=== PATIENT | female | born 1945 | race Caucasian/White ===

== ENCOUNTER 2017-05-17 17:51 | Emergency (ER) | payer MEDICARE, OTHER ==
[2017-05-17 18:01] VITALS: BP 141/63
[2017-05-17] MEDS ORDERED: Sodium Chloride 0.9% 10 ML Syringe FLUSH PRN ×2 (18:21→19:39)
[2017-05-17] MEDS ORDERED: Ondansetron 4 MG/2 ML SDV IVPUSH ONE (18:21)
[2017-05-17] MEDS ORDERED: Sodium Chloride 0.9% 1,000 ML IV SCH (18:30)
--- NOTE | 2017-05-17 18:31 | EDM.PDOC ---
<Janes Hayden - Last Filed: 05/17/17 18:25> ED HPI GENERAL MEDICAL PROBLEM - General Chief Complaint: Abdominal Pain Stated Complaint: LOWER ABD PAIN Time Seen by Provider: 05/17/17 18:14 Source of Information: Reports: Patient History Limitations: Reports: No Limitations - History of Present Illness INITIAL COMMENTS - FREE TEXT/NARRATIVE: The patient presents with RLQ abdominal pain. This started 3 days ago. It was intermittent at first and now it is constant. She has nausea and vomiting. She has a little diarrhea. She has no fever but she does have chills at times. She has no dysuria. She has no chest pain or shortness of breath. She had a hystorectomy. She thinks she still has her appendix. She has no eaten any bad food. She has not been around anyone who is sick. Onset: Gradual Duration: Day(s): (3) Location: Reports: Abdomen Quality: Reports: Sharp Severity: Moderate Improves with: Reports: None Worsens with: Reports: None Associated Symptoms: Reports: Fever/Chills, Nausea/Vomiting. Denies: Shortness of Breath Right Lower Abdomen Pain Score (Numeric/FACES): 7 - Related Data Allergies Allergy/AdvReac Type Severity Reaction Status Date / Time cefaclor [From Ceclor] Allergy Cannot Verified 05/17/17 18:01 Remember cephalexin monohydrate Allergy Cannot Verified 05/17/17 18:01 [From Keflex] Remember codeine Allergy Cannot Verified 05/17/17 18:01 Remember Penicillins Allergy Hives Verified 05/17/17 18:01 Home Meds: Home Meds Levothyroxine. 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: Endocrine/Metabolic History: Reports: Hypothyroidism - Past Surgical History HEENT Surgical History: Reports: Tonsillectomy Cardiovascular Surgical History: Reports: None Female Surgical History: Reports: Hysterectomy Social & Family History - Tobacco Use Smoking Status *Q: Current Every Day Smoker Years of Tobacco use: 50 Packs/Tins Daily: 0.3 Used Tobacco, but Quit: No Second Hand Smoke Exposure: No - Caffeine Use Caffeine Use: Reports: Coffee - Alcohol Use Days Per Week of Alcohol Use: 2 Number of Drinks Per Day: 6 Total Drinks Per Week: 12 - Recreational Drug Use Recreational Drug Use: No - Living Situation & Occupation Living situation: Reports: , with Spouse Occupation: Retired ED ROS GENERAL - Review of Systems Review Of Systems: See Below Constitutional: Reports: Chills. Denies: Fever HEENT: Reports: No Symptoms Respiratory: Reports: No Symptoms Cardiovascular: Reports: No Symptoms Endocrine: Reports: No Symptoms GI/Abdominal: Reports: Abdominal Pain, Diarrhea, Nausea, Vomiting : Reports: No Symptoms Musculoskeletal: Reports: No Symptoms Skin: Reports: No Symptoms ED EXAM, GI/ABD - Physical Exam Exam: See Below Exam Limited By: No Limitations General Appearance: Alert, No Apparent Distress Ears: Normal External Exam Nose: Normal Inspection Head: Atraumatic, Normocephalic Neck: Normal Inspection Respiratory/Chest: No Respiratory Distress, Lungs Clear, Normal Breath Sounds Cardiovascular: Regular Rate, Rhythm, No Edema, No Murmur GI/Abdominal: Soft, No Organomegaly, No Mass, Tenderness (Moderate to the RLQ), Guarding Back Exam: Normal Inspection Extremities: Normal Inspection Course - Vital Signs Last Recorded V/S: Last Vital Signs Temp 37.3 C 05/17/17 17:58 Pulse 67 05/17/17 17:58 Resp 18 05/17/17 17:58 BP 141/63 H 05/17/17 17:58 Pulse Ox 97 05/17/17 17:58 - Orders/Labs/Meds Orders: Active Orders 24 hr Category Date Time Status Peripheral IV Care [RC] . DIRECTED Care 05/17/17 18:24 Active Abdomen Pelvis w Cont [CT] Stat Exams 05/17/17 18:21 Taken CEA [REF] Stat Lab 05/17/17 18:30 Received Potassium Chloride [KCl 10 MEQ in Water 100 ML] 10 meq Med 05/17/17 19:30 Active Premix Bag 1 bag IV ASDIRECTED Sodium Chloride 0.9% [Normal Saline] 1,000 ml Med 05/17/17 18:30 Active IV ASDIRECTED Sodium Chloride 0.9% [Saline Flush] Med 05/17/17 18:21 Active 10 ml FLUSH ASDIRECTED PRN Sodium Chloride 0.9% [Saline Flush] Med 05/17/17 19:39 Active 10 ml FLUSH ONETIME PRN ED Antiemetic Medication Reflex [OM.PC] Stat Oth 05/17/17 18:23 Ordered Peripheral IV Insertion Adult [OM.PC] Stat Ot 05/17/17 18:21 Ordered Medication Orders Sodium Chloride (Normal Saline) 1,000 mls @ 125 mls/hr IV ASDIRECTED STACI Last Admin: 05/17/17 18:45 Dose: 125 mls/hr Potassium Chloride 10 meq/ (Premix) 100 mls @ 100 mls/hr IV ASDIRECTED STACI Last Admin: 05/17/17 20:12 Dose: 100 mls/hr Sodium Chloride (Saline Flush) 10 ml FLUSH ASDIRECTED PRN PRN Reason: Keep Vein Open Last Admin: 05/17/17 18:50 Dose: 10 ml Sodium Chloride (Saline Flush) 10 ml FLUSH ONETIME PRN PRN Reason: IV FLUSH Last Admin: 05/17/17 19:55 Dose: 10 ml Labs: Laboratory Tests 05/17/17 05/17/17 05/17/17 Range/Units 18:16 18:30 18:50 WBC 8.43 (3.98-10.04) K/mm3 RBC 3.93 L (3.98-5.22) M/mm3 Hgb 13.3 (11.2-15.7) gm/L Hct 37.9 (34.1-44.9) % MCV 96.4 H (79.4-94.8) fl MCH 33.8 H (25.6-32.2) pg MCHC 35.1 (32.2-35.5) g/dl RDW Std Deviation 40.6 (36.4-46.3) fL Plt Count 228 (182-369) K/mm3 MPV 11.0 (9.4-12.3) fl Neut % (Auto) 72.5 H (34.0-71.1) % Lymph % (Auto) 20.5 (19.3-51.7) % Hood % (Auto) 6.0 (4.7-12.5) % Eos % (Auto) 0.8 (0.7-5.8) Baso % (Auto) 0.1 (0.1-1.2) % Neut # (Auto) 6.10 (1.56-6.13) K/mm3 Lymph # (Auto) 1.73 (1.18-3.74) K/mm3 Hood # (Auto) 0.51 H (0.24-0.36) K/mm3 Eos # (Auto) 0.07 (0.04-0.36) K/mm3 Baso # (Auto) 0.01 (0.01-0.08) K/mm3 Sodium (136-145) mEq/L Potassium (3.5-5.1) mEq/L Chloride (98-107) mEq/L Carbon Dioxide (21-32) mEq/L Anion Gap (5-15) BUN (7-18) mg/dL Creatinine (0.55-1.02) mg/dL Est Cr Clr Drug Dosing Estimated GFR (MDRD) (>60) mL/min BUN/Creatinine Ratio (14-18) Glucose (83-115) mg/dL Calcium (8.5-10.1) mg/dL Total Bilirubin (0.2-1.0) mg/dL AST (15-37) U/L ALT (14-59) U/L Alkaline Phosphatase (46-116) U/L C-Reactive Protein (<1.0) mg/dL Total Protein (6.4-8.2) g/dl Albumin (3.4-5.0) g/dl Globulin gm/dL Albumin/Globulin Ratio (1-2) Lipase (73-393) U/L Urine Color Yellow (Yellow) Urine Appearance Clear (Clear) Urine pH 6.5 (5.0-8.0) Ur Specific [place] 1.015 (1.005-1.030) Urine Protein Negative (Negative) Urine Glucose (UA) Negative (Negative) Urine Ketones Negative (Negative) Urine Occult Blood Negative (Negative) Urine Nitrite Negative (Negative) Urine Bilirubin Negative (Negative) Urine Urobilinogen 0.2 (0.2-1.0) Ur Leukocyte Esterase Negative (Negative) Urine RBC Not seen (0-5) /hpf Urine WBC 0-5 (0-5) /hpf Ur Epithelial Cells 0-5 (0-5) /hpf Urine Bacteria Not seen (FEW) /hpf Urine Mucus Not seen (FEW) /hpf H. pylori IgG Antibody Negative (NEGATIVE) 05/17/17 05/17/17 Range/Units 18:50 18:50 WBC (3.98-10.04) K/mm3 RBC (3.98-5.22) M/mm3 Hgb (11.2-15.7) gm/L Hct (34.1-44.9) % MCV (79.4-94.8) fl MCH (25.6-32.2) pg MCHC (32.2-35.5) g/dl RDW Std Deviation (36.4-46.3) fL Plt Count (182-369) K/mm3 MPV (9.4-12.3) fl Neut % (Auto) (34.0-71.1) % Lymph % (Auto) (19.3-51.7) % Hood % (Auto) (4.7-12.5) % Eos % (Auto) (0.7-5.8) Baso % (Auto) (0.1-1.2) % Neut # (Auto) (1.56-6.13) K/mm3 Lymph # (Auto) (1.18-3.74) K/mm3 Hood # (Auto) (0.24-0.36) K/mm3 Eos # (Auto) (0.04-0.36) K/mm3 Baso # (Auto) (0.01-0.08) K/mm3 Sodium 135 L (136-145) mEq/L Potassium 3.1 L (3.5-5.1) mEq/L Chloride 97 L (98-107) mEq/L Carbon Dioxide 27 (21-32) mEq/L Anion Gap 14.1 (5-15) BUN 11 (7-18) mg/dL Creatinine 0.9 (0.55-1.02) mg/dL Est Cr Clr Drug Dosing TNP Estimated GFR (MDRD) > 60 (>60) mL/min BUN/Creatinine Ratio 12.2 L (14-18) Glucose 87 (83-115) mg/dL Calcium 8.9 (8.5-10.1) mg/dL Total Bilirubin 0.4 (0.2-1.0) mg/dL AST 22 (15-37) U/L ALT 27 (14-59) U/L Alkaline Phosphatase 55 (46-116) U/L C-Reactive Protein < 0.2 (<1.0) mg/dL Total Protein 7.1 (6.4-8.2) g/dl Albumin 3.9 (3.4-5.0) g/dl Globulin 3.2 gm/dL Albumin/Globulin Ratio 1.2 (1-2) Lipase 170 (73-393) U/L Urine Color (Yellow) Urine Appearance (Clear) Urine pH (5.0-8.0) Ur Specific [place] (1.005-1.030) Urine Protein (Negative) Urine Glucose (UA) (Negative) Urine Ketones (Negative) Urine Occult Blood (Negative) Urine Nitrite (Negative) Urine Bilirubin (Negative) Urine Urobilinogen (0.2-1.0) Ur Leukocyte Esterase (Negative) Urine RBC (0-5) /hpf Urine WBC (0-5) /hpf Ur Epithelial Cells (0-5) /hpf Urine Bacteria (FEW) /hpf Urine Mucus (FEW) /hpf H. pylori IgG Antibody (NEGATIVE) Meds: Medications Generic Name Dose Route Start Last Admin Trade Name Freq PRN Reason Stop Dose Admin Sodium Chloride 1,000 mls @ 125 mls/hr 05/17/17 18:30 05/17/17 18:45 Normal Saline IV 125 mls/hr ASDIRECTED STACI Administration Potassium Chloride 10 meq/ 100 mls @ 100 mls/hr 05/17/17 19:30 05/17/17 20:12 Premix IV 100 mls/hr ASDIRECTED STACI Administration Sodium Chloride 10 ml 05/17/17 18:21 05/17/17 18:50 Saline Flush FLUSH 10 ml ASDIRECTED PRN Administration Keep Vein Open Sodium Chloride 10 ml 05/17/17 19:39 05/17/17 19:55 Saline Flush FLUSH 10 ml ONETIME PRN Administration IV FLUSH Discontinued Medications Generic Name Dose Route Start Last Admin Trade Name Freq PRN Reason Stop Dose Admin Diatrizoate Meglum/Diatrizoate Sod 90 ml 05/17/17 19:39 05/17/17 19:55 Gastrografin 37% PO 05/17/17 19:40 90 ml ONETIME ONE Administration Iopamidol 100 ml 05/17/17 19:39 05/17/17 19:55 Isovue-300 (61%) IVPUSH 05/17/17 19:40 100 ml ONETIME ONE Administration Ondansetron HCl 4 mg 05/17/17 18:21 05/17/17 18:42 Zofran IVPUSH 05/17/17 18:22 4 mg ONETIME ONE Administration - Re-Assessments/Exams Free Text/Narrative Re-Assessment/Exam: 05/17/17 18:33 I ordered an IV NS at 125mL/hr, zofran 4mg IV, labs, UA and a CT of her abdomen and pelvis. It is the end of my shift. Dr Maloney will take over. Departure - Departure Disposition: Home, Self-Care 01 Clinical Impression: Rectal mass, Hypokalemia Abdominal pain Qualifiers: Abdominal location: right lower quadrant Qualified Code(s): R10.31 - Right lower quadrant pain Diarrhea Qualifiers: Diarrhea type: unspecified type Qualified Code(s): R19.7 - Diarrhea, unspecified - Discharge Information Referrals: Martin Agustin MD [Primary Care Provider] - Forms: ED Department Discharge Additional Instructions: Evaluation in the emergency room today in regards to right lower quadrant abdominal pain that is working been worsening over the last 3 days. Lab work done essentially was all within normal limits other than low potassium at 3.1 which is mostly from not eating as well as normal. He did receive some potassium intravenously while here in the department to bring it back up towards normal. CT of the abdomen did not reveal any abnormality is within the liver or pancreas spleen and gallbladder or kidneys. The appendix was not visualized. There is a mass in the rectum however and this needs further investigation to rule out cancer. Please arrange follow-up with Dr. Valadez next week so that he can direct further care by way of surgical consultation and biopsy of this mass. May take pain medication if needed which you have at home. Continue to eat and drink as per normal. - My Orders Last 24 Hours: My Active Orders 05/17/17 18:30 CEA [REF] Stat 05/17/17 19:30 Potassium Chloride [KCl 10 MEQ in Water 100 ML] 10 meq Premix Bag 1 bag IV ASDIRECTED 05/17/17 19:39 Sodium Chloride 0.9% [Saline Flush] 10 ml FLUSH ONETIME PRN - Assessment/Plan Last 24 Hours: My Active Orders 05/17/17 18:30 CEA [REF] Stat 05/17/17 19:30 Potassium Chloride [KCl 10 MEQ in Water 100 ML] 10 meq Premix Bag 1 bag IV ASDIRECTED 05/17/17 19:39 Sodium Chloride 0.9% [Saline Flush] 10 ml FLUSH ONETIME PRN <Miguel Maloney - Last Filed: 05/17/17 21:24> Course - Radiology Interpretation Free Text/Narrative:: 72-year-old female presents the ED with diffuse right lower quadrant abdominal pain gradually worsening over the last 3 days. Associated nausea and intermittent vomiting and one diarrhea stool today. No associated fever but did have some chills. Dr. Khan and has ordered routine labs blood cultures urinalysis lipase and CT of the abdomen and pelvis with oral and IV contrast. She has received Zofran 4 mg IV. She refused anything for pain at this time. - Re-Assessments/Exams Free Text/Narrative Re-Assessment/Exam: 05/17/17 18:[address] Hayden at change of shift. Urinalysis is normal. RLQ abdominal pain x 3 days. Associated anorexia. Ate only an Portuguese muffin today so far. 05/17/17 19:29 WBC is 8.43 with 72.5% neutrophils reported on automated differential. Hemoglobin is 13.3 hematocrit is 37.9 platelet is 228,000. Sodium 135 potassium low at 3.1. Chloride is 94 bicarbonate 27. Anion gap 14.1 lipase normal at 170. CRP is pending. On examination she is quite bloated and distended and somewhat tympanitic to percussion throughout. Bowel sounds are quite active in all 4 quadrants. No guarding or rebound tenderness elicited. Pain for the most part is felt in the right lower quadrant but also radiates up into her left shoulder at times. She's had loose stools or diarrhea stools 3 or 4 times in the last 36 hours. She has just finished her oral contrast. CT is scheduled for 19:45. She does admit that her toes are cramping up at times may be secondary to the hypoechoic anemia. I will give her 10 mg of potassium IV over the next half hour. 05/17/17 20:13 CT of the abdomen and pelvis has been completed. Stomach is well filled with contrast media small bowels all filled with contrast media as is most of us large bowel. There is no obvious increased stool within the colon. Minimal diverticula evident with no evidence of active diverticulitis.. Liver itself appears normal. Gallbladder appears normal without stones. Pancreas appears normal spleen is normal. Kidneys are both atrophic left right renal pelvis is slightly dilated as is the proximal ureter but no stone or obstruction could be identified in the distal ureter. Appendix is not seen. No fluid in the lower pelvis identified. No abdominal wall or inguinal hernias appreciated. There is a mass in the lower rectum involving the wall of the colon approximately 8-10 cm proximal colon it takes up almost 50% of the diameter of the colon. This is very concerning for malignancy. Is attached to the right wall of the rectum. This may be the cause of her right lower quadrant abdominal pain. Will await Radiology report 05/17/17 20:59 radiology agrees with the above findings. They also suggested may be some thickening in the duodenum to suggest gastroduodenitis. I therefore ordered H. pylori. I also ordered a CEA antigen due to the possibility of rectal carcinoma. Spoke to the patient about the findings. Once her potassium has been infused he'll be discharged to home. She'll follow-up with her personal physician Dr. Valadez next week to arrange for a surgeon to do a colonoscopy and biopsy this. Dr. Pride is currently on vacation. He may be back next week. She has had previous colonoscopies when Dr. Murillo was still working. It may be as long as 8 years since she has had a colonoscopy. Departure - Departure Time of Disposition: 21:30 Condition: Fair - My Orders Last 24 Hours: My Active Orders 05/17/17 18:30 CEA [REF] Stat 05/17/17 19:30 Potassium Chloride [KCl 10 MEQ in Water 100 ML] 10 meq Premix Bag 1 bag IV ASDIRECTED 05/17/17 19:39 Sodium Chloride 0.9% [Saline Flush] 10 ml FLUSH ONETIME PRN - Assessment/Plan Last 24 Hours: My Active Orders 05/17/17 18:30 CEA [REF] Stat 05/17/17 19:30 Potassium Chloride [KCl 10 MEQ in Water 100 ML] 10 meq Premix Bag 1 bag IV ASDIRECTED 05/17/17 19:39 Sodium Chloride 0.9% [Saline Flush] 10 ml FLUSH ONETIME PRN
[2017-05-17] MEDS ORDERED: Potassium Chloride 10 MEQ in Premix Bag 1 BAG IV SCH (19:30)
[2017-05-17] MEDS ORDERED: Diatrizoate Meglumine/Diatrizoate Sodium 37% 120 ML Bottle PO ONE (19:39)
[2017-05-17] MEDS ORDERED: Iopamidol 612 MG/ML 100 ML Bottle IVPUSH ONE (19:39)
--- NOTE | 2017-05-19 15:26 | CT ---
CT abdomen and pelvis Technique: Multiple axial sections were obtained from above the dome of the diaphragm inferiorly through the pubic symphysis. Intravenous and oral contrast was utilized. Comparison: Previous CT abdomen and pelvis exam of 04/25/15. Findings: Visualized lung bases are clear. Small hiatal hernia is seen. Liver shows no focal parenchymal abnormality. Spleen appears within normal limits. Soft tissue nodule is noted medial to the spleen compatible with accessory splenic tissue. Low-density lesion is noted within the left kidney compatible with a cyst measuring 1.9 cm in size. Kidneys otherwise are normal in appearance. Pancreas appears within normal limits. Adrenal glands show no nodule. Gallbladder shows no calcified gallstones. Atherosclerotic change is noted within the aorta and iliac vessels without aneurysm. No retroperitoneal adenopathy is seen. Appendix is not visualized. No pelvic mass or adenopathy is seen. Soft tissue finding is seen within the rectum possibly due to stool but recommend further evaluation to exclude rectal mass. Mild diverticulosis is noted within the descending and sigmoid regions. Soft tissue fullness is seen within the stomach antrum most likely due to normal stomach contraction if patient has no symptoms of gastritis. Bone window settings were reviewed which show degenerative change within the spine with vacuum phenomena being seen at L3-L4 through L5-S1. Mild spondylolisthesis noted at L3-L4 due to degenerative apophyseal change. Impression: 1. Soft tissue density within the rectum either due to stool or less likely mass. Please correlate with endoscopy. 2. Finding within the stomach antrum likely due to normal peristalsis. Please correlate that patient has no symptoms of gastritis. 3. Other incidental findings. Nothing acute is identified. Diagnostic code #3 I agree with preliminary report issued by [employer] ([facility] report finalized on 05/17/17, 9:38 PM Central Time)
== END 2017-05-17 21:30 | disposition home or self-care (01) ==
LOC: JD.ED 17:51
DX: R10.31 Right lower quadrant pain (principal); R19.7 Diarrhea, unspecified; K62.89 Other specified diseases of anus and rectum; E87.6 Hypokalemia; I10 Essential (primary) hypertension; E78.00 Pure hypercholesterolemia, unspecified; F17.210 Nicotine dependence, cigarettes, uncomplicated; E03.9 Hypothyroidism, unspecified; Z90.710 Acquired absence of both cervix and uterus; Z98.890 Other specified postprocedural states; Z79.899 Other long term (current) drug therapy; Z88.0 Allergy status to penicillin; Z88.5 Allergy status to narcotic agent; Z88.1 Allergy status to other antibiotic agents
CPT/HCPCS: 36415; 74177; 80053; 81001; 82378; 83690; 85025; 86140; 86677; 96361; 96365; 96375; 99284; J2405; J3480; J7040; J7050; Q9963; Q9967

== ENCOUNTER 2018-03-18 18:50 | Emergency (ER) | payer MEDICARE, OTHER ==
--- NOTE | 2018-03-18 19:02 | EDM.PDOC ---
ED HPI GENERAL MEDICAL PROBLEM - General Chief Complaint: Abdominal Pain Stated Complaint: ABDOMINAL PAIN THAT GOES DOWN INTO BOTH LEGS Time Seen by Provider: 03/18/18 19:02 Source of Information: Reports: Patient History Limitations: Reports: No Limitations - History of Present Illness INITIAL COMMENTS - FREE TEXT/NARRATIVE: 73-year-old female presents to the ED complaining of diffuse constant abdominal pain. Pain awoke her from sleep yesterday morning and seemed to be off and on throughout the day. Today it's become much more constant and associated with nausea. She spitting up small amounts of mucus is clear. No bilious emesis. Bowels did work normally once today without blood. She's had one previous surgery which was a total abdominal hysterectomy and BSO. This was done at age 26. Pain does not radiate into her back. She states the pain seems to radiate down the anterior aspect of both legs she knows she has [id number] in her right hip and is to have it replaced. Last meal was a bit of a solid at noon today. Nothing since Onset: Sudden Onset Date: 03/17/18 (Awoke with some diffuse amount discomfort yesterday but it seemed to come and go. Worse since waking up this morning and is been persistent. No strep throat real colicky component to the pain.) Duration: Hour(s): Location: Reports: Abdomen Quality: Reports: Ache, Sharp, Stabbing Severity: Moderate (To the lower extremities) Improves with: Reports: None Worsens with: Reports: Movement Context: Denies: Activity (Walking seems to make it worse), Exercise, Lifting, Sick Contact, Trauma, Other Associated Symptoms: Reports: Loss of Appetite. Denies: No Other Symptoms, Confusion, Chest Pain, Cough, cough w sputum, Diaphoresis, Fever/Chills, Headaches, Malaise, Nausea/Vomiting, Rash, Seizure, Shortness of Breath, Syncope , Weakness Treatments SURGICAL TECH: Reports: Other (see below) (None.) Upper Abdomen Pain Score (Numeric/FACES): 7 - Related Data Allergies Allergy/AdvReac Type Severity Reaction Status Date / Time cefaclor [From Ceclor] Allergy Cannot Verified 03/18/18 19:05 Remember cephalexin monohydrate Allergy Cannot Verified 03/18/18 19:05 [From Keflex] Remember codeine Allergy Cannot Verified 03/18/18 19:05 Remember Penicillins Allergy Hives Verified 03/18/18 19:05 Home Meds: Home Meds Levothyroxine. 75 mcg PO DAILY 05/18/14 [History] Losartan [Cozaar] 50 mg PO DAILY 06/26/16 [History] Calcium Carbonate/Vitamin D3 [Calcium 600 + Vit D Tablet] 1 each PO DAILY [History] Cholecalciferol (Vitamin D3) [Vitamin D] 5,000 unit PO ASDIRECTED 05/17/17 [ History] Fish Oil/Swengel-3 Fatty Acids [Fish Oil] 1 gm PO DAILY 05/17/17 [History] Levofloxacin [Levaquin] 500 mg PO DAILY #5 tab 03/18/18 [Rx] Past Medical History HEENT History: Reports: Impaired Vision, Sinusitis Other HEENT History: WEARS CORRECTIVE LENSES Cardiovascular History: Reports: High Cholesterol, Hypertension [employer] History: Reports: Endocrine/Metabolic History: Reports: Hypothyroidism - Past Surgical History HEENT Surgical History: Reports: Tonsillectomy Cardiovascular Surgical History: Reports: None Female Surgical History: Reports: Hysterectomy Social & Family History - Caffeine Use Caffeine Use: Reports: Coffee - Living Situation & Occupation Living situation: Reports: , with Spouse Occupation: Retired ED ROS GENERAL - Review of Systems Review Of Systems: See Below Constitutional: Reports: Decreased Appetite. Denies: Fever, Chills, Malaise, Weakness, Fatigue, Weight Loss HEENT: Reports: No Symptoms Respiratory: Reports: No Symptoms Cardiovascular: Reports: No Symptoms Endocrine: Reports: No Symptoms GI/Abdominal: Reports: Abdominal Pain, Decreased Appetite, Distension (Feels distended and bloated.), Nausea. Denies: Hematemesis, Melena, Stool Incontinence, Vomiting, Other Musculoskeletal: Reports: No Symptoms, Other (Has pain in her right hip bone-on- bone and is due to have it fixed.). Denies: Back Pain Skin: Reports: No Symptoms Neurological: Reports: No Symptoms Psychiatric: Reports: No Symptoms Hematologic/Lymphatic: Reports: No Symptoms Immunologic: Reports: No Symptoms ED EXAM, GI/ABD - Physical Exam Exam: See Below Exam Limited By: No Limitations General Appearance: Alert, WD/WN, No Apparent Distress Eyes: Bilateral: Normal Appearance (No jaundice.) Throat/Mouth: Normal Inspection, Normal Lips Head: Atraumatic, Normocephalic Neck: Normal Inspection, Supple, Non-Tender, Full Range of Motion. No: Carotid Bruit, Lymphadenopathy (L), Lymphadenopathy (R) Respiratory/Chest: No Respiratory Distress, Lungs Clear, Normal Breath Sounds, No Accessory Muscle Use Cardiovascular: Normal Peripheral Pulses, Regular Rate, Rhythm, No Edema, No Murmur GI/Abdominal Exam: Soft, Non-Tender, No Organomegaly (Hyperactive bowel sounds in all 4 quadrants. She reports she's been drinking a large quantity of water today.), No Abnormal Bruit, No Mass, Pelvis Stable, Distended, Abnormal Bowel Sounds, Other (Well-healed infraumbilical classical incision from umbilicus just suprapubic is from total abdominal hysterectomy.). No: Guarding, Rigid, Rebound, Tender Back Exam: Normal Inspection, Full Range of Motion. No: CVA Tenderness (L), CVA Tenderness (R) Extremities: Normal Inspection, Normal Range of Motion, Non-Tender, No Pedal Edema, Other (She can lift both legs off the gurney well above 60 without any signs of sciatica or referred pain down her legs.) Neurological: Alert, Oriented, CN II-XII Intact, Normal Cognition, Normal Gait Psychiatric: Normal Affect, Normal Mood Skin Exam: Warm, Dry, Intact, Normal Color, No Rash Course - Vital Signs Last Recorded V/S: Last Vital Signs Temp 36.6 C 03/18/18 18:56 Pulse 70 03/18/18 18:56 Resp 18 03/18/18 18:56 BP 151/69 H 03/18/18 18:56 Pulse Ox 99 03/18/18 18:56 - Orders/Labs/Meds Orders: Active Orders 24 hr Category Date Time Status Abdomen 1V Flat [CR] Stat Exams 03/18/18 19:14 Taken CULTURE URINE [RM] Stat Lab 03/18/18 20:43 Ordered URINALYSIS W/MICROSCOPIC [UA W/MICROSCOPIC] [URIN] Stat Lab 03/18/18 19:00 Ordered Sodium Chloride 0.9% [Normal Saline] 1,000 ml Med 03/18/18 19:15 Active IV ASDIRECTED Medication Orders Sodium Chloride (Normal Saline) 1,000 mls @ 125 mls/hr IV ASDIRECTED STACI Last Admin: 03/18/18 19:27 Dose: 125 mls/hr Labs: Laboratory Tests 03/18/18 03/18/18 03/18/18 Range/Units 19:00 19:20 19:20 WBC 8.31 (3.98-10.04) K/mm3 RBC 3.88 L (3.98-5.22) M/mm3 Hgb 12.9 (11.2-15.7) gm/L Hct 38.0 (34.1-44.9) % MCV 97.9 H (79.4-94.8) fl MCH 33.2 H (25.6-32.2) pg MCHC 33.9 (32.2-35.5) g/dl RDW Std Deviation 40.9 (36.4-46.3) fL Plt Count 243 (182-369) K/mm3 MPV 11.4 (9.4-12.3) fl Neutrophils % (Manual) 70 H (40-60) % Band Neutrophils % 1 (0-10) % Lymphocytes % (Manual) 24 (20-40) % Atypical Lymphs % 0 % Monocytes % (Manual) 3 (2-10) % Eosinophils % (Manual) 1 (0.7-5.8) % Basophils % (Manual) 1 (0.1-1.2) Platelet Estimate Adequate RBC Morph Comment Normal D-Dimer, Quantitative 0.41 (0.19-0.50) mg/L Sodium (136-145) mEq/L Potassium (3.5-5.1) mEq/L Chloride (98-107) mEq/L Carbon Dioxide (21-32) mEq/L Anion Gap (5-15) BUN (7-18) mg/dL Creatinine (0.55-1.02) mg/dL Est Cr Clr Drug Dosing mL/min Estimated GFR (MDRD) (>60) mL/min BUN/Creatinine Ratio (14-18) Glucose (83-115) mg/dL Calcium (8.5-10.1) mg/dL Magnesium (1.8-2.4) mg/dl Total Bilirubin (0.2-1.0) mg/dL AST (15-37) U/L ALT (14-59) U/L Alkaline Phosphatase (46-116) U/L C-Reactive Protein (<1.0) mg/dL Total Protein (6.4-8.2) g/dl Albumin (3.4-5.0) g/dl Globulin gm/dL Albumin/Globulin Ratio (1-2) Lipase (73-393) U/L Urine Color Light yellow (Yellow) Urine Appearance Clear (Clear) Urine pH 7.0 (5.0-8.0) Ur Specific Busby 1.015 (1.005-1.030) Urine Protein Negative (Negative) Urine Glucose (UA) Negative (Negative) Urine Ketones Negative (Negative) Urine Occult Blood Negative (Negative) Urine Nitrite Negative (Negative) Urine Bilirubin Negative (Negative) Urine Urobilinogen 0.2 (0.2-1.0) Ur Leukocyte Esterase 2+ H (Negative) Urine RBC 0-5 (0-5) /hpf Urine WBC 5-10 H (0-5) /hpf Ur Epithelial Cells 0-5 (0-5) /hpf Urine Bacteria Few (FEW) /hpf Urine Mucus Not seen (FEW) /hpf 03/18/18 03/18/18 Range/Units 19:20 19:20 WBC (3.98-10.04) K/mm3 RBC (3.98-5.22) M/mm3 Hgb (11.2-15.7) gm/L Hct (34.1-44.9) % MCV (79.4-94.8) fl MCH (25.6-32.2) pg MCHC (32.2-35.5) g/dl RDW Std Deviation (36.4-46.3) fL Plt Count (182-369) K/mm3 MPV (9.4-12.3) fl Neutrophils % (Manual) (40-60) % Band Neutrophils % (0-10) % Lymphocytes % (Manual) (20-40) % Atypical Lymphs % % Monocytes % (Manual) (2-10) % Eosinophils % (Manual) (0.7-5.8) % Basophils % (Manual) (0.1-1.2) Platelet Estimate RBC Morph Comment D-Dimer, Quantitative (0.19-0.50) mg/L Sodium 139 (136-145) mEq/L Potassium 3.3 L (3.5-5.1) mEq/L Chloride 101 (98-107) mEq/L Carbon Dioxide 25 (21-32) mEq/L Anion Gap 16.3 H (5-15) BUN 13 (7-18) mg/dL Creatinine 0.8 (0.55-1.02) mg/dL Est Cr Clr Drug Dosing 48.80 mL/min Estimated GFR (MDRD) > 60 (>60) mL/min BUN/Creatinine Ratio 16.3 (14-18) Glucose 99 (83-115) mg/dL Calcium 9.1 (8.5-10.1) mg/dL Magnesium 1.7 L (1.8-2.4) mg/dl Total Bilirubin 0.4 (0.2-1.0) mg/dL AST 30 (15-37) U/L ALT 36 (14-59) U/L Alkaline Phosphatase 47 (46-116) U/L C-Reactive Protein < 0.2 (<1.0) mg/dL Total Protein 7.3 (6.4-8.2) g/dl Albumin 4.0 (3.4-5.0) g/dl Globulin 3.3 gm/dL Albumin/Globulin Ratio 1.2 (1-2) Lipase 150 (73-393) U/L Urine Color (Yellow) Urine Appearance (Clear) Urine pH (5.0-8.0) Ur Specific Busby (1.005-1.030) Urine Protein (Negative) Urine Glucose (UA) (Negative) Urine Ketones (Negative) Urine Occult Blood (Negative) Urine Nitrite (Negative) Urine Bilirubin (Negative) Urine Urobilinogen (0.2-1.0) Ur Leukocyte Esterase (Negative) Urine RBC (0-5) /hpf Urine WBC (0-5) /hpf Ur Epithelial Cells (0-5) /hpf Urine Bacteria (FEW) /hpf Urine Mucus (FEW) /hpf Meds: Medications Generic Name Dose Route Start Last Admin Trade Name Freq PRN Reason Stop Dose Admin Sodium Chloride 1,000 mls @ 125 mls/hr 03/18/18 19:15 03/18/18 19:27 Normal Saline IV 125 mls/hr ASDIRECTED STACI Administration Discontinued Medications Generic Name Dose Route Start Last Admin Trade Name Freq PRN Reason Stop Dose Admin Hydromorphone HCl 0.5 mg 03/18/18 19:33 03/18/18 19:43 Dilaudid IVPUSH 03/18/18 19:34 Not Given ONETIME ONE Ondansetron HCl 4 mg/ Sodium 52 mls @ 100 mls/hr 03/18/18 19:13 Chloride IV 03/18/18 19:45 ONETIME ONE Ondansetron HCl 4 mg 03/18/18 19:23 Zofran IVPUSH 03/18/18 19:24 ONETIME ONE Ondansetron HCl 4 mg 03/18/18 19:32 03/18/18 19:41 Zofran IVPUSH 03/18/18 19:33 4 mg ONETIME ONE Administration - Radiology Interpretation Free Text/Narrative:: 73-year-old female presents the ED with complaint of diffuse abdominal pain primarily epigastrium pain is occasionally sharp and stabbing is referred into the pelvis and down both legs anteriorly and posteriorly. She has [id number] in her right hip with loss of internal/external rotation. She can lift both legs off the gurney without problems. She has 2+ posterior tibial and dorsalis pedis pulses in both lower extremities. No femoral bruits identified. No aortic abdominal bruit identified. Plan IV normal saline 125 mils per hour given Zofran 4 mg IV for nausea relief. Dilaudid 0.5 mg IV for pain relief. One view of the abdomen to be done in routine labs to be done. She drinks alcohol rarely. She has no peritoneal signs but she is diffusely Tympany to percussion and slightly distended. Hyperactive bowel sounds also appreciated. The unusual thing is the referred pain into the lower extremities. Consider aortic dissection in the differential. - Re-Assessments/Exams Free Text/Narrative Re-Assessment/Exam: 03/18/18 19:44 examination of the KUB reveals increased stool throughout the colon particularly the hepatic flexure of the colon distended with air. No bowel obstruction signs are evident. Diffuse degenerative changes are appreciated throughout the lumbar spine as well. 03/18/18 20:42 White count is 8.31 with 70% neutrophils and 1% bands reported. Hemoglobin is 12.9 with hematocrit of 38.0. D-dimer is normal at 0.41. Sodium is 139 with a potassium of 3.3 which is slightly low. Chloride 101 with a bicarbonate 25. Anion gap is mildly elevated at 16.3. BUN is 13 with a creatinine of 0.8. GFR is greater than 60. Glucose is 99. Calcium 9.1 with a magnesium of 1.7. Liver function is normal. C-reactive protein is less than 0.2. Lipase 150. Urinalysis shows 2+ leukocyte esterase with 5-10 WBCs per high- power field.. Few bacteria seen. Urine culture will be ordered. 03/18/18 20:48 therefore appears that she may have a low-grade urinary tract infection although she states she hasn't had one for years. She has urinary frequency because she drinks excessive amounts of water throughout the day. I think the majority of her down the pain is secondary to constipation the right hemicolon. She'll be given a bottle of Citroma to take at home 7 ounces tonight mixed with water that she does not drink juices. She will also be started on Levaquin 500 mg once daily for urinary tract infection for 6 days. First tablet will provide provided in the ED tonight. Departure - Departure Time of Disposition: 20:49 Disposition: Home, Self-Care 01 Condition: Fair Clinical Impression: Constipation by delayed colonic transit, Lower urinary tract infection Abdominal pain Qualifiers: Abdominal location: right lower quadrant Qualified Code(s): R10.31 - Right lower quadrant pain - Discharge Information Prescriptions: Levofloxacin [Levaquin] 500 mg PO DAILY #5 tab Referrals: Martin Agustin MD [Primary Care Provider] - Forms: ED Department Discharge Additional Instructions: evaluation the emergency room today in regards to diffuse abdominal pain since he got up this morning. Associated bloating feeling. Examination revealedno obvious serious underlying pathology of the abdomen. Bowel sounds were hyperactive and abdomen is distended with air. Tray was done and did not show any signs of bowel obstruction. He does show increased stool throughout the right hemicolon and other parts of the colon but mostly the plug in the right hemicolon is causing gas buildup and pain.Lab work was otherwise normal. Urinalysis however did suggest that there is a low-grade urinary tract infection and culture was ordered. Treatment is therefore magnesium citrate 7 ounces by mouth mixed with whatever juice or water you like. This will start work in 1-2 hours and her bowels move usually for 5 times and should relieve your abdominal pain completely. Antibiotic Levaquin 500 milligrams once daily with first dose given in the ED. Next dose would be due at suppertime tomorrow and for another 5 days. Follow-up if not markedly improved in the next 48 hours particularly if you're lower extremity or legs continue to hurt you. - My Orders Last 24 Hours: My Active Orders 03/18/18 19:00 URINALYSIS W/MICROSCOPIC [UA W/MICROSCOPIC] [URIN] Stat 03/18/18 19:14 Abdomen 1V Flat [CR] Stat 03/18/18 19:15 Sodium Chloride 0.9% [Normal Saline] 1,000 ml IV ASDIRECTED 03/18/18 20:43 CULTURE URINE [RM] Stat - Assessment/Plan Last 24 Hours: My Active Orders 03/18/18 19:00 URINALYSIS W/MICROSCOPIC [UA W/MICROSCOPIC] [URIN] Stat 03/18/18 19:14 Abdomen 1V Flat [CR] Stat 03/18/18 19:15 Sodium Chloride 0.9% [Normal Saline] 1,000 ml IV ASDIRECTED 03/18/18 20:43 CULTURE URINE [RM] Stat
[2018-03-18 19:05] VITALS: BP 151/69
[2018-03-18] MEDS ORDERED: Ondansetron 4 MG in Sodium Chloride 0.9% 50 ML IV ONE (19:13)
[2018-03-18] MEDS ORDERED: Sodium Chloride 0.9% 1,000 ML IV SCH (19:15)
[2018-03-18] MEDS ORDERED: Ondansetron 4 MG/2 ML SDV IVPUSH ONE ×2 (19:23→19:32)
[2018-03-18] MEDS ORDERED: HYDROmorphone 0.5 MG/0.5 ML SYRINGE IVPUSH ONE (19:33)
[2018-03-18] MEDS ORDERED: Levofloxacin 250 MG Tab PO ONE (20:48)
[2018-03-18] MEDS ORDERED: Magnesium Citrate Solution 296 ML Bottle PO ONE (20:49)
--- NOTE | 2018-03-19 07:55 | CR ---
Abdomen: Supine view of the abdomen was obtained. Comparison: Prior abdominal x-ray of 01/07/16. Bowel gas pattern appears normal. Bony structures are osteopenic. Calcifications are seen within the pelvis compatible with phleboliths. No additional abnormality is seen. Impression: 1. Incidental findings. Nothing acute is seen on supine abdominal x-ray. Diagnostic code #2
== END 2018-03-18 21:03 | disposition home or self-care (01) ==
LOC: JD.ED 18:50
DX: K59.01 Slow transit constipation (principal); N39.0 Urinary tract infection, site not specified; E03.9 Hypothyroidism, unspecified; E78.00 Pure hypercholesterolemia, unspecified; I10 Essential (primary) hypertension; Z88.1 Allergy status to other antibiotic agents; Z88.0 Allergy status to penicillin; Z88.5 Allergy status to narcotic agent; Z88.8 Allergy status to other drugs, medicaments and biological substances; Z79.899 Other long term (current) drug therapy
CPT/HCPCS: 36415; 74018; 80053; 81001; 83690; 83735; 85007; 85027; 85379; 86140; 87086; 96361; 96374; 99284; A9270; J2405; J7040

== ENCOUNTER 2018-11-18 19:57 | Emergency (ER) | payer MEDICARE, OTHER ==
[2018-11-18 20:11] VITALS: BP 145/66
--- NOTE | 2018-11-18 20:14 | EDM.PDOC ---
ED HPI GENERAL MEDICAL PROBLEM - General Chief Complaint: General Stated Complaint: pain everywhere Time Seen by Provider: 11/18/18 20:12 Source of Information: Reports: Patient - History of Present Illness INITIAL COMMENTS - FREE TEXT/NARRATIVE: Patient is here for evaluation of "weakness and pain all over". She states that this started around noon. Mildly let up in the afternoon and then worsened again so she went to bed. She states she had a difficult time getting comfortable due to pain all over, particularly bilateral upper extremities. Had some tingling to the fingertips of her left hand. She states that she had this tingling to her left hand previously when she was having problems with her neck but has not had anything like this in the last few months. Also notes occasional tingling to her left leg. She does not feel weak. She denies any changes in her vision or speech. She denies any headache. Has a cough with productive sputum but this has been chronic for her. Denies fever or chills. Occasional nausea and even an emesis occasionally with coughing but this is chronic. Denies diarrhea or constipation. Patient reports that she has chronic neck pain. She has had MRIs and steroid injections in her neck previously and this helped for several years but now her neck pain has been worsening. Particularly on the left side of her neck and into her left upper extremity. She also has some pain to her right upper extremity, particularly the bicep region. She has had ultrasound of this area at the walk-in clinic and they told her to follow up with her provider. She is unclear what the ultrasound results were. She has appointment with her PCP tomorrow. Patient lives with her . She denies any ill contacts. Generalized Pain Score (Numeric/FACES): 9 - Related Data Allergies Allergy/AdvReac Type Severity Reaction Status Date / Time cefaclor [From Ceclor] Allergy Cannot Verified 06/05/18 21:44 Remember cephalexin monohydrate Allergy Cannot Verified 06/05/18 21:44 [From Keflex] Remember codeine Allergy Cannot Verified 06/05/18 21:44 Remember Penicillins Allergy Hives Verified 06/05/18 21:44 Home Meds: Home Meds Levothyroxine. 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: Psychiatric History: Reports: Anxiety Endocrine/Metabolic History: Reports: Hypothyroidism - Infectious Disease History Infectious Disease History: Reports: Chicken Pox, Measles, Shingles - Past Surgical History HEENT Surgical History: Reports: Tonsillectomy Female Surgical History: Reports: Hysterectomy Musculoskeletal Surgical History: Reports: Hip Replacement, ORIF Social & Family History - Tobacco Use Smoking Status *Q: Former Smoker Used Tobacco, but Quit: Yes Month/Year Tobacco Last Used: 7 months - Caffeine Use Caffeine Use: Reports: Coffee - Recreational Drug Use Recreational Drug Use: No - Living Situation & Occupation Living situation: Reports: , with Spouse Occupation: Retired ED ROS GENERAL - Review of Systems Review Of Systems: See Below Constitutional: Reports: Weakness, Fatigue. Denies: Fever, Chills, Night Sweats , Diaphoresis, Decreased Appetite HEENT: Reports: Rhinitis, Sinus Problem. Denies: Ear Discharge, Ear Pain, Hearing Loss, Vertigo, Vision Change Respiratory: Reports: Cough, Sputum (chronic, unchanged). Denies: Shortness of Breath, Wheezing, Hemoptysis Cardiovascular: Denies: Chest Pain, Blood Pressure Problem, Dyspnea on Exertion , Edema, Lightheadedness, Palpitations GI/Abdominal: Reports: Nausea, Vomiting (with coughing). Denies: Abdominal Pain , Constipation, Diarrhea, Decreased Appetite, Flatus Musculoskeletal: Reports: Neck Pain, Shoulder Pain (right), Arm Pain (bilateral) , Muscle Pain, Muscle Stiffness Skin: Reports: No Symptoms Neurological: Reports: Tingling (left fingertips). Denies: Confusion, Dizziness , Headache, Numbness, Seizure, Syncope Psychiatric: Reports: No Symptoms Hematologic/Lymphatic: Reports: No Symptoms Immunologic: Reports: No Symptoms ED EXAM, GENERAL - Physical Exam Exam: See Below Exam Limited By: No Limitations General Appearance: Alert, WD/WN, No Apparent Distress Eye Exam: Bilateral Eye: Normal Inspection, PERRL, Other (Visual crow intact.) Ears: Normal External Exam, Normal Canal, Hearing Grossly Normal Nose: Normal Inspection Throat/Mouth: Normal Inspection, Normal Oropharynx Head: Atraumatic, Normocephalic Neck: Normal Inspection. No: Lymphadenopathy (L), Lymphadenopathy (R) Respiratory/Chest: No Respiratory Distress, Lungs Clear, Normal Breath Sounds Cardiovascular: Normal Peripheral Pulses, Regular Rate, Rhythm, No Edema, No Murmur Peripheral Pulses: 2+: Posterior Tibial (L), Posterior Tibial (R) GI/Abdominal: Normal Bowel Sounds, Soft, Non-Tender Back Exam: Normal Inspection, Other (Limited overall range of motion of her cervical spine. Significant spasm and tenderness to bilateral cervical paraspinous muscles. Strength equal bilaterally to upper and lower extremities. ). No: Paraspinal Tenderness, Vertebral Tenderness Extremities: Normal Inspection, Normal Range of Motion, Other (Obvious bulge to right bicep area.). No: Pedal Edema Neurological: Alert, Oriented, CN II-XII Intact, Normal Cognition, No Motor/ Sensory Deficits, Slow to Respond. No: Disoriented, Unresponsive, Memory Loss Remote Events, Abnormal Reflexes Psychiatric: Normal Affect, Normal Mood Skin Exam: Warm, Dry, Intact Lymphatic: No Adenopathy Course - Vital Signs Last Recorded V/S: Last Vital Signs Temp 97.4 F 11/18/18 20:10 Pulse 68 11/18/18 20:10 Resp 20 11/18/18 20:10 BP 145/66 H 11/18/18 20:10 Pulse Ox 97 11/18/18 20:10 - Orders/Labs/Meds Orders: Active Orders 24 hr Category Date Time Status EKG 12 Lead [EKG Documentation Completion] [RC] STAT Care 11/18/18 20:33 Active Head wo Cont [CT] Stat Exams 11/18/18 20:29 Taken Labs: Laboratory Tests 11/18/18 11/18/18 11/18/18 Range/Units 20:45 20:45 20:45 WBC 6.48 (3.98-10.04) K/mm3 RBC 3.79 L (3.98-5.22) M/mm3 Hgb 13.0 (11.2-15.7) gm/L Hct 37.8 (34.1-44.9) % MCV 99.7 H (79.4-94.8) fl MCH 34.3 H (25.6-32.2) pg MCHC 34.4 (32.2-35.5) g/dl RDW Std Deviation 42.9 (36.4-46.3) fL Plt Count 252 (182-369) K/mm3 MPV 10.8 (9.4-12.3) fl Neutrophils % (Manual) 58 (40-60) % Band Neutrophils % 0 (0-10) % Lymphocytes % (Manual) 33 (20-40) % Atypical Lymphs % 0 % Monocytes % (Manual) 5 (2-10) % Eosinophils % (Manual) 3 (0.7-5.8) % Basophils % (Manual) 1 (0.1-1.2) Platelet Estimate Adequate RBC Morph Comment Normal ESR (0-20) mm/hr Sodium 138 (136-145) mEq/L Potassium 3.4 L (3.5-5.1) mEq/L Chloride 99 (98-107) mEq/L Carbon Dioxide 29 (21-32) mEq/L Anion Gap 13.4 (5-15) BUN 11 (7-18) mg/dL Creatinine 0.9 (0.55-1.02) mg/dL Est Cr Clr Drug Dosing 43.37 mL/min Estimated GFR (MDRD) > 60 (>60) mL/min BUN/Creatinine Ratio 12.2 L (14-18) Glucose 106 (83-115) mg/dL Calcium 9.3 (8.5-10.1) mg/dL Total Bilirubin 0.4 (0.2-1.0) mg/dL AST 26 (15-37) U/L ALT 30 (14-59) U/L Alkaline Phosphatase 71 (46-116) U/L Troponin I < 0.017 (0.00-0.056) ng/mL C-Reactive Protein < 0.2 (<1.0) mg/dL Total Protein 7.5 (6.4-8.2) g/dl Albumin 4.1 (3.4-5.0) g/dl Globulin 3.4 gm/dL Albumin/Globulin Ratio 1.2 (1-2) TSH 3rd Generation 0.446 (0.358-3.74) uIU/mL Urine Color Light yellow (Yellow) Urine Appearance Clear (Clear) Urine pH 7.0 (5.0-8.0) Ur Specific [place] 1.015 (1.005-1.030) Urine Protein Negative (Negative) Urine Glucose (UA) Negative (Negative) Urine Ketones Negative (Negative) Urine Occult Blood Negative (Negative) Urine Nitrite Negative (Negative) Urine Bilirubin Negative (Negative) Urine Urobilinogen 0.2 (0.2-1.0) Ur Leukocyte Esterase Negative (Negative) Urine RBC 0-5 (0-5) /hpf Urine WBC 0-5 (0-5) /hpf Ur Epithelial Cells Not seen (0-5) /hpf Urine Bacteria Not seen (FEW) /hpf Urine Mucus Not seen (FEW) /hpf 11/18/18 Range/Units 20:45 WBC (3.98-10.04) K/mm3 RBC (3.98-5.22) M/mm3 Hgb (11.2-15.7) gm/L Hct (34.1-44.9) % MCV (79.4-94.8) fl MCH (25.6-32.2) pg MCHC (32.2-35.5) g/dl RDW Std Deviation (36.4-46.3) fL Plt Count (182-369) K/mm3 MPV (9.4-12.3) fl Neutrophils % (Manual) (40-60) % Band Neutrophils % (0-10) % Lymphocytes % (Manual) (20-40) % Atypical Lymphs % % Monocytes % (Manual) (2-10) % Eosinophils % (Manual) (0.7-5.8) % Basophils % (Manual) (0.1-1.2) Platelet Estimate RBC Morph Comment ESR 12 (0-20) mm/hr Sodium (136-145) mEq/L Potassium (3.5-5.1) mEq/L Chloride (98-107) mEq/L Carbon Dioxide (21-32) mEq/L Anion Gap (5-15) BUN (7-18) mg/dL Creatinine (0.55-1.02) mg/dL Est Cr Clr Drug Dosing mL/min Estimated GFR (MDRD) (>60) mL/min BUN/Creatinine Ratio (14-18) Glucose (83-115) mg/dL Calcium (8.5-10.1) mg/dL Total Bilirubin (0.2-1.0) mg/dL AST (15-37) U/L ALT (14-59) U/L Alkaline Phosphatase (46-116) U/L Troponin I (0.00-0.056) ng/mL C-Reactive Protein (<1.0) mg/dL Total Protein (6.4-8.2) g/dl Albumin (3.4-5.0) g/dl Globulin gm/dL Albumin/Globulin Ratio (1-2) TSH 3rd Generation (0.358-3.74) uIU/mL Urine Color (Yellow) Urine Appearance (Clear) Urine pH (5.0-8.0) Ur Specific [place] (1.005-1.030) Urine Protein (Negative) Urine Glucose (UA) (Negative) Urine Ketones (Negative) Urine Occult Blood (Negative) Urine Nitrite (Negative) Urine Bilirubin (Negative) Urine Urobilinogen (0.2-1.0) Ur Leukocyte Esterase (Negative) Urine RBC (0-5) /hpf Urine WBC (0-5) /hpf Ur Epithelial Cells (0-5) /hpf Urine Bacteria (FEW) /hpf Urine Mucus (FEW) /hpf - Radiology Interpretation Free Text/Narrative:: Head CT demonstrates no acute abnormality. - Re-Assessments/Exams Free Text/Narrative Re-Assessment/Exam: Patient's symptom description is very vague of pain all over and feeling weak. Her chronic neck pain is much worse and she has some tingling to the left fingertips, told that this is been chronic and related to her neck pain. She has had previous MRI and has an appointment with her PCP tomorrow to evaluate this as well as a bulge to her right bicep area. Neurologic exam is essentially normal today. Strength equal to upper and lower extremities bilaterally. Head CT demonstrates no acute abnormality. EKG demonstrates normal sinus rhythm with a rate of 67. CBC/CMP unremarkable. Troponin negative. CRP/ESR may normal range. I suspect patient's pain and going to her fingers just related to her chronic neck pain. She has an appointment scheduled with her PCP and will follow up with him tomorrow to discuss further treatment options of this. In the meantime will use Tylenol or ibuprofen as needed. She'll follow up in the emergency department for any new or worsening symptoms. 11/18/18 20:46 11/18/18 22:06 Departure - Departure Time of Disposition: 22:04 Disposition: Home, Self-Care 01 Condition: Good Clinical Impression: Neck pain, Tingling of left upper extremity - Discharge Information Referrals: Martin Agustin MD [Primary Care Provider] - Forms: ED Department Discharge Additional Instructions: You were evaluated emergency room today for neck pain and left arm pain. I suspect this is related to your chronic arthritis. Medication rest, take ibuprofen or Tylenol as needed. Follow-up with your PCP as scheduled tomorrow to discuss further treatment options for this. Return to Emergency room for any new or worsening symptoms. - My Orders Last 24 Hours: My Active Orders 11/18/18 20:29 Head wo Cont [CT] Stat 11/18/18 20:33 EKG 12 Lead [EKG Documentation Completion] [RC] STAT - Assessment/Plan Last 24 Hours: My Active Orders 11/18/18 20:29 Head wo Cont [CT] Stat 11/18/18 20:33 EKG 12 Lead [EKG Documentation Completion] [RC] STAT
--- NOTE | 2018-11-19 07:07 | CT ---
Head CT Technique: Multiple axial sections through the brain were obtained. Intravenous contrast was not utilized. Comparison: Previous MRI brain dated 02/14/11. Findings: Ventricles along with basal cisterns and sulci over the convexities are mildly prominent. Mild diminished density is noted within the periventricular white matter compatible with small vessel ischemic demyelination change. No other abnormal parenchymal densities are seen. No evidence of intracranial hemorrhage. No midline shift or mass effect is seen. Bone window settings were reviewed which show visualized sinuses to appear clear. No acute calvarial abnormality is identified. Impression: 1. Mild senescent change. 2. Nothing acute is appreciated on noncontrast head CT study. Diagnostic code #2 I agree with preliminary report from [facility], finalized on 11/18/18, 10:20 PM Central Time
== END 2018-11-18 22:15 | disposition home or self-care (01) ==
LOC: JD.ED 19:57
DX: M54.2 Cervicalgia (principal); R20.2 Paresthesia of skin; I10 Essential (primary) hypertension; E03.9 Hypothyroidism, unspecified; F41.9 Anxiety disorder, unspecified; K21.9 Gastro-esophageal reflux disease without esophagitis; Z87.891 Personal history of nicotine dependence; Z88.1 Allergy status to other antibiotic agents; Z88.5 Allergy status to narcotic agent; Z88.0 Allergy status to penicillin; Z79.899 Other long term (current) drug therapy
CPT/HCPCS: 36415; 70450; 70450-26; 80053; 81001; 84443; 84484; 85007; 85027; 85652; 86140; 87804; 93005; 93010; 99282; 99284-25

== ENCOUNTER 2019-01-22 15:16 | Emergency (ER) | payer MEDICARE, OTHER ==
--- NOTE | 2019-01-22 18:17 | EDM.PDOC ---
ED HPI GENERAL MEDICAL PROBLEM - General Chief Complaint: General Stated Complaint: BODYACHE SENT BY CLINIC Time Seen by Provider: 01/22/19 16:10 Source of Information: Reports: Patient, RN Notes Reviewed - History of Present Illness INITIAL COMMENTS - FREE TEXT/NARRATIVE: 73 to lady has nasal and sinus congestion worsening over the last couple of days. Today she now has scratchy throat, states she "aches all over". This includes achiness of her chest. She has occasional coughing. She states her stomach feels somewhat upset. There's been no vomiting or diarrhea. She has been having chills but no definite fever. Generalized Pain Score (Numeric/FACES): 8 - Related Data Allergies Allergy/AdvReac Type Severity Reaction Status Date / Time cefaclor [From Ceclor] Allergy Cannot Verified 06/05/18 21:44 Remember cephalexin monohydrate Allergy Cannot Verified 06/05/18 21:44 [From Keflex] Remember codeine Allergy Cannot Verified 06/05/18 21:44 Remember Penicillins Allergy Hives Verified 06/05/18 21:44 Home Meds: Home Meds Losartan [Cozaar] 50 mg PO DAILY 06/26/16 [History] Calcium Carbonate/Vitamin D3 [Calcium 600 + Vit D Tablet] 1 each PO DAILY [History] Cholecalciferol (Vitamin D3) [Vitamin D] 5,000 unit PO ASDIRECTED 05/17/17 [ History] Fish Oil/[place]-3 Fatty Acids [Fish Oil] 1 gm PO DAILY 05/17/17 [History] Levothyroxine 75 mcg PO DAILY 01/22/19 [History] Past Medical History HEENT History: Reports: Impaired Vision Other HEENT History: WEARS CORRECTIVE LENSES Cardiovascular History: Reports: Hypertension 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 History: Reports: GERD 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: Psychiatric History: Reports: Anxiety Endocrine/Metabolic History: Reports: Hypothyroidism - Infectious Disease History Infectious Disease History: Reports: Chicken Pox, Measles, Shingles - Past Surgical History HEENT Surgical History: Reports: Tonsillectomy Female Surgical History: Reports: Hysterectomy Musculoskeletal Surgical History: Reports: Hip Replacement, ORIF Social & Family History - Tobacco Use Smoking Status *Q: Former Smoker Used Tobacco, but Quit: Yes Month/Year Tobacco Last Used: 10 Second Hand Smoke Exposure: No - Caffeine Use Caffeine Use: Reports: Coffee - Recreational Drug Use Recreational Drug Use: No - Living Situation & Occupation Living situation: Reports: , with Spouse Occupation: Retired ED ROS GENERAL - Review of Systems Review Of Systems: See Below Constitutional: Denies: Fever, Chills, Diaphoresis HEENT: Reports: Rhinitis, Throat Pain Respiratory: Reports: Cough. Denies: Shortness of Breath Cardiovascular: Reports: Chest Pain (Mild to moderate achiness) Endocrine: Reports: Fatigue GI/Abdominal: Reports: Decreased Appetite, Nausea. Denies: Abdominal Pain, Diarrhea, Vomiting Musculoskeletal: Reports: Back Pain, Leg Pain, Other (Generalized myalgias) Skin: Denies: Rash Neurological: Reports: No Symptoms ED EXAM, GENERAL - Physical Exam Exam: See Below General Appearance: Alert, No Apparent Distress Eye Exam: Bilateral Eye: PERRL Throat/Mouth: Normal Inspection, Normal Oropharynx Head: Atraumatic. No: Facial Swelling Neck: Supple, Full Range of Motion. No: Lymphadenopathy (L), Lymphadenopathy (R ) Respiratory/Chest: No Respiratory Distress, Lungs Clear, Normal Breath Sounds. No: Rhonchi, Wheezing Cardiovascular: Regular Rate, Rhythm GI/Abdominal: Soft, Non-Tender Back Exam: No: CVA Tenderness (L), CVA Tenderness (R) Extremities: Normal Inspection. No: Pedal Edema, Leg Pain, Increased Warmth, Redness Neurological: Alert, Oriented, No Motor/Sensory Deficits Skin Exam: Warm, Dry, Normal Color EKG INTERPRETATION EKG Date: 01/22/19 Rhythm: NSR [place]: Normal P-Wave: Present QRS: Normal ST-T: Normal Course - Vital Signs Last Recorded V/S: Last Vital Signs Temp 98.9 F 01/22/19 16:06 Pulse 64 01/22/19 16:06 Resp 18 01/22/19 16:06 BP 149/71 H 01/22/19 16:06 Pulse Ox 98 01/22/19 16:06 - Orders/Labs/Meds Orders: Active Orders 24 hr Category Date Time Status EKG 12 Lead [EKG Documentation Completion] [RC] STAT Care 01/22/19 17:12 Active Labs: Laboratory Tests 01/22/19 01/22/19 Range/Units 17:20 17:20 WBC 7.36 (3.98-10.04) K/mm3 RBC 3.59 L (3.98-5.22) M/mm3 Hgb 12.3 (11.2-15.7) gm/L Hct 36.6 (34.1-44.9) % MCV 101.9 H (79.4-94.8) fl MCH 34.3 H (25.6-32.2) pg MCHC 33.6 (32.2-35.5) g/dl RDW Std Deviation 44.7 (36.4-46.3) fL Plt Count 214 (182-369) K/mm3 MPV 11.6 (9.4-12.3) fl Neut % (Auto) 69.4 (34.0-71.1) % Lymph % (Auto) 22.1 (19.3-51.7) % [place] % (Auto) 6.7 (4.7-12.5) % Eos % (Auto) 1.2 (0.7-5.8) Baso % (Auto) 0.3 (0.1-1.2) % Neut # (Auto) 5.11 (1.56-6.13) K/mm3 Lymph # (Auto) 1.63 (1.18-3.74) K/mm3 [place] # (Auto) 0.49 H (0.24-0.36) K/mm3 Eos # (Auto) 0.09 (0.04-0.36) K/mm3 Baso # (Auto) 0.02 (0.01-0.08) K/mm3 Troponin I < 0.017 (0.00-0.056) ng/mL - Re-Assessments/Exams Free Text/Narrative Re-Assessment/Exam: 01/22/19 18:45. Influenza screen did come back negative. EKG does not show any acute changes, troponins normal, discharge instructions as documented. Departure - Departure Time of Disposition: 18:16 Disposition: Home, Self-Care 01 Condition: Fair Clinical Impression: Viral syndrome, Atypical chest pain - Discharge Information Referrals: Martin Agustin MD [Primary Care Provider] - Forms: ED Department Discharge Additional Instructions: Rest, vaporizer steam as needed, cough and decongestant medication as needed, he may alternate Tylenol and ibuprofen as needed. Follow up clinic if not much better by early next week, return to ED as needed if symptoms worsening in any way. - My Orders Last 24 Hours: My Active Orders 01/22/19 17:12 EKG 12 Lead [EKG Documentation Completion] [RC] STAT - Assessment/Plan Last 24 Hours: My Active Orders 01/22/19 17:12 EKG 12 Lead [EKG Documentation Completion] [RC] STAT
[2019-01-22 19:00] VITALS: BP 117/55
== END 2019-01-22 18:50 | disposition home or self-care (01) ==
LOC: JD.ED 15:16
DX: R07.89 Other chest pain (principal); B34.9 Viral infection, unspecified; F41.9 Anxiety disorder, unspecified; I10 Essential (primary) hypertension; E03.9 Hypothyroidism, unspecified; Z79.899 Other long term (current) drug therapy; Z87.891 Personal history of nicotine dependence; Z88.1 Allergy status to other antibiotic agents; Z88.5 Allergy status to narcotic agent; Z88.0 Allergy status to penicillin
CPT/HCPCS: 36415; 84484; 85025; 87804; 93005; 93010; 99283; 99283-25

== ENCOUNTER 2019-04-29 22:18 | Emergency (ER) | payer MEDICARE, OTHER ==
[2019-04-29 22:28] VITALS: BP 158/80
--- NOTE | 2019-04-29 22:52 | EDM.PDOC ---
ED HPI GENERAL MEDICAL PROBLEM - General Chief Complaint: General Stated Complaint: BODY ACHES, SHORT OF BREATH WHEN LAYING DOWN Time Seen by Provider: 04/29/19 23:15 Source of Information: Reports: Patient History Limitations: Reports: No Limitations - History of Present Illness INITIAL COMMENTS - FREE TEXT/NARRATIVE: 74-year-old female presents the ED with her . Chief complaint is trouble breathing particularly through her nose. She has generalized aches and pains. She states she didn't feel all that well this morning before she had her polio shot. Is been 13 months since she had her last one for osteoporosis and is scheduled again in October. She can recognize whether she suffered any bone pain after polio shot in the past for problems with reflux or indigestion. She feels bloated in her abdomen hasn't had a good bowel movement for 4-5 days. She feels short of breath. But she is not coughing. No chest pain. More or less aches everywhere. Onset: Today Onset Date: 04/29/19 Duration: Hour(s): Location: Reports: Generalized ([place] pain with difficulty breathing through her nose. Abdominal bloat and pressure in the rectum which she has no bowel movement but is unable to do so.) Quality: Reports: Ache Severity: Moderate (Stop 5-6 out of 10. She did not want any analgesia however.) Improves with: Reports: None Worsens with: Reports: None Context: Reports: Other (Anxiety.). Denies: Activity, Exercise, Lifting, Sick Contact, Trauma Associated Symptoms: Reports: Headaches, Loss of Appetite, Malaise, Shortness of Breath, Weakness. 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.) Generalized Pain Score (Numeric/FACES): 7 - Related Data Allergies Allergy/AdvReac Type Severity Reaction Status Date / Time cefaclor [From Ceclor] Allergy Cannot Verified 04/29/19 22:29 Remember cephalexin monohydrate Allergy Cannot Verified 04/29/19 22:29 [From Keflex] Remember codeine Allergy Cannot Verified 04/29/19 22:29 Remember Penicillins Allergy Hives Verified 04/29/19 22:29 Home Meds: Home Meds Losartan [Cozaar] 50 mg PO DAILY 06/26/16 [History] Calcium Carbonate/Vitamin D3 [Calcium 600 + Vit D Tablet] 1 each PO DAILY [History] Fish Oil/Vincent-3 Fatty Acids [Fish Oil] 1 gm PO DAILY 05/17/17 [History] Levothyroxine 75 mcg PO DAILY 01/22/19 [History] Cholecalciferol (Vitamin D3) [Vitamin D3] 2,000 unit PO DAILY 04/29/19 [History] Denosumab [Prolia] 60 mg IM ASDIRECTED 04/29/19 [History] Past Medical History HEENT History: Reports: Impaired Vision Other HEENT History: WEARS CORRECTIVE LENSES Cardiovascular History: Reports: Hypertension 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 History: Reports: GERD 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: Psychiatric History: Reports: Anxiety, Other (See Below) (Chronic problems with insomnia.) Endocrine/Metabolic History: Reports: Hypothyroidism (Takes levothyroxine 75 g daily) - Infectious Disease History Infectious Disease History: Reports: Chicken Pox, Measles, Shingles - Past Surgical History HEENT Surgical History: Reports: Tonsillectomy Female Surgical History: Reports: Hysterectomy Musculoskeletal Surgical History: Reports: Hip Replacement (Right side.), ORIF Social & Family History - Tobacco Use Smoking Status *Q: Never Smoker - Caffeine Use Caffeine Use: Reports: None - Recreational Drug Use Recreational Drug Use: No - Living Situation & Occupation Living situation: Reports: , with Spouse Occupation: Retired ED ROS GENERAL - Review of Systems Review Of Systems: See Below Constitutional: Reports: Malaise, Weakness, Fatigue, Decreased Appetite. Denies : Fever, Chills HEENT: Reports: Glasses, Rhinitis (Feels nasally congested I believe from allergies. No signs of an upper respiratory tract infection) Respiratory: Denies: Shortness of Breath, Wheezing, Pleuritic Chest Pain, Cough , Sputum Cardiovascular: Reports: Blood Pressure Problem, Dyspnea on Exertion (On losartan for blood pressure). Denies: Chest Pain, Claudication, Edema, Lightheadedness, Orthopnea, Palpitations Endocrine: Reports: Fatigue GI/Abdominal: Reports: Abdominal Pain, Constipation, Decreased Appetite (No good bowel movement for the last 4-5 days.), Nausea (Mild nausea times). Denies : Difficulty Swallowing, Hematemesis, Hematochezia, Melena, Stool Incontinence, Vomiting, Other : Reports: Frequency, Incontinence (No slightly urge incontinence.) Musculoskeletal: Reports: Other (Generalized aches and pains shoulders neck back knees and hips) Skin: Reports: No Symptoms Neurological: Reports: No Symptoms Psychiatric: Reports: Anxiety Hematologic/Lymphatic: Reports: No Symptoms Immunologic: Reports: No Symptoms ED EXAM, GENERAL - Physical Exam Exam: See Below Exam Limited By: No Limitations General Appearance: Alert, WD/WN, Anxious, Mild Distress, Other (Vital signs reveal afebrile. Heart rate 67 and sinus respiratory 16 with sats of 96% on room air. BP is 158/80.) Eye Exam: Bilateral Eye: Normal Inspection Nose: Other (Mild diffuse nasal congestion with swollen turbinates bilaterally with no nasal polyps evident.) Throat/Mouth: Normal Lips, Normal Teeth, Normal Gums, Normal Voice, No Airway Compromise, Inflammation (Mild posterior oropharynx likely due to postnasal drip ), Other (Mild posterior). No: Normal Inspection, Normal Oropharynx, Dysphagia Head: Atraumatic, Normocephalic Neck: Normal Inspection, Supple, Non-Tender, Full Range of Motion. No: Lymphadenopathy (L), Lymphadenopathy (R) Respiratory/Chest: No Respiratory Distress, Lungs Clear, Normal Breath Sounds, Chest Non-Tender Cardiovascular: Normal Peripheral Pulses, Regular Rate, Rhythm, No Edema, No Gallop, No Murmur, No Rub Peripheral Pulses: 2+: Carotid (L), Carotid (R), Posterior Tibial (L), Posterior Tibial (R), Dorsalis Pedis (L), Dorsalis Pedis (R) GI/Abdominal: Soft, No Organomegaly, Distended (Slightly hyperactive is distended and tip in 8 to percussion), Abnormal Bowel Sounds. No: Guarding, Rigid, Rebound Back Exam: Normal Inspection, Full Range of Motion, Other (Mild kyphosis thoracic spine.). No: CVA Tenderness (L), CVA Tenderness (R) Extremities: Normal Inspection, Normal Range of Motion, Other (Seems to be generally tender throughout her muscles particularly quadriceps and calves.) Neurological: Alert ( No sign of active inflammation in her knees ankles hips wrist or elbows.), Oriented, CN II-XII Intact, Normal Cognition Psychiatric: Anxious Skin Exam: Warm (Mildly anxious), Dry, Intact, Normal Color, No Rash EKG INTERPRETATION Rate (Beats/Min): 87 EKG Interpretation Comments: Borderline ECG Course - Vital Signs Last Recorded V/S: Last Vital Signs Temp 36.7 C 04/29/19 22:26 Pulse 67 04/29/19 22:26 Resp 16 04/29/19 22:26 BP 158/80 H 04/29/19 22:26 Pulse Ox 96 04/29/19 22:26 - Orders/Labs/Meds Orders: Active Orders 24 hr Category Date Time Status Abdomen 1V Flat [CR] Stat Exams 04/29/19 23:53 Taken Labs: Laboratory Tests 04/29/19 04/30/19 04/30/19 Range/Units 23:50 00:04 00:04 WBC 5.96 (3.98-10.04) K/mm3 RBC 3.76 L (3.98-5.22) M/mm3 Hgb 12.5 (11.2-15.7) gm/L Hct 37.0 (34.1-44.9) % MCV 98.4 H D (79.4-94.8) fl MCH 33.2 H (25.6-32.2) pg MCHC 33.8 (32.2-35.5) g/dl RDW Std Deviation 40.6 (36.4-46.3) fL Plt Count 240 (182-369) K/mm3 MPV 11.1 (9.4-12.3) fl Neutrophils % (Manual) 56 (40-60) % Band Neutrophils % 0 (0-10) % Lymphocytes % (Manual) 34 (20-40) % Atypical Lymphs % 0 % Monocytes % (Manual) 4 (2-10) % Eosinophils % (Manual) 6 H (0.7-5.8) % Basophils % (Manual) 0 L (0.1-1.2) Platelet Estimate Adequate Plt Morphology Comment Normal Macrocytosis 1+ slight Stomatocytes 1+ slight RBC Morph Comment Not Reportable ESR (0-20) mm/hr Sodium 135 L (136-145) mEq/L Potassium 3.4 L (3.5-5.1) mEq/L Chloride 99 (98-107) mEq/L Carbon Dioxide 27 (21-32) mEq/L Anion Gap 12.4 (5-15) BUN 11 (7-18) mg/dL Creatinine 0.9 (0.55-1.02) mg/dL Est Cr Clr Drug Dosing 42.72 mL/min Estimated GFR (MDRD) > 60 (>60) mL/min BUN/Creatinine Ratio 12.2 L (14-18) Glucose 94 (83-115) mg/dL Calcium 8.8 (8.5-10.1) mg/dL Magnesium 1.8 (1.8-2.4) mg/dl Total Bilirubin 0.5 (0.2-1.0) mg/dL AST 25 (15-37) U/L ALT 36 (14-59) U/L Alkaline Phosphatase 76 (46-116) U/L C-Reactive Protein < 0.2 (<1.0) mg/dL NT-Pro-B Natriuret Pep (0-450) pg/mL Total Protein 6.8 (6.4-8.2) g/dl Albumin 3.9 (3.4-5.0) g/dl Globulin 2.9 gm/dL Albumin/Globulin Ratio 1.3 (1-2) Urine Color Yellow (Yellow) Urine Appearance Clear (Clear) Urine pH 7.0 (5.0-8.0) Ur Specific [place] 1.010 (1.005-1.030) Urine Protein Negative (Negative) Urine Glucose (UA) Negative (Negative) Urine Ketones Negative (Negative) Urine Occult Blood Negative (Negative) Urine Nitrite Negative (Negative) Urine Bilirubin Negative (Negative) Urine Urobilinogen 0.2 (0.2-1.0) Ur Leukocyte Esterase Negative (Negative) Urine RBC 0-5 (0-5) /hpf Urine WBC Not seen (0-5) /hpf Ur Squamous Epith Cells 0-5 (0-5) /hpf Urine Bacteria Rare (FEW) /hpf Urine Mucus Not seen (FEW) /hpf 04/30/19 04/30/19 Range/Units 00:04 00:04 WBC (3.98-10.04) K/mm3 RBC (3.98-5.22) M/mm3 Hgb (11.2-15.7) gm/L Hct (34.1-44.9) % MCV (79.4-94.8) fl MCH (25.6-32.2) pg MCHC (32.2-35.5) g/dl RDW Std Deviation (36.4-46.3) fL Plt Count (182-369) K/mm3 MPV (9.4-12.3) fl Neutrophils % (Manual) (40-60) % Band Neutrophils % (0-10) % Lymphocytes % (Manual) (20-40) % Atypical Lymphs % % Monocytes % (Manual) (2-10) % Eosinophils % (Manual) (0.7-5.8) % Basophils % (Manual) (0.1-1.2) Platelet Estimate Plt Morphology Comment Macrocytosis Stomatocytes RBC Morph Comment ESR 10 (0-20) mm/hr Sodium (136-145) mEq/L Potassium (3.5-5.1) mEq/L Chloride (98-107) mEq/L Carbon Dioxide (21-32) mEq/L Anion Gap (5-15) BUN (7-18) mg/dL Creatinine (0.55-1.02) mg/dL Est Cr Clr Drug Dosing mL/min Estimated GFR (MDRD) (>60) mL/min BUN/Creatinine Ratio (14-18) Glucose (83-115) mg/dL Calcium (8.5-10.1) mg/dL Magnesium (1.8-2.4) mg/dl Total Bilirubin (0.2-1.0) mg/dL AST (15-37) U/L ALT (14-59) U/L Alkaline Phosphatase (46-116) U/L C-Reactive Protein (<1.0) mg/dL NT-Pro-B Natriuret Pep 87 (0-450) pg/mL Total Protein (6.4-8.2) g/dl Albumin (3.4-5.0) g/dl Globulin gm/dL Albumin/Globulin Ratio (1-2) Urine Color (Yellow) Urine Appearance (Clear) Urine pH (5.0-8.0) Ur Specific [place] (1.005-1.030) Urine Protein (Negative) Urine Glucose (UA) (Negative) Urine Ketones (Negative) Urine Occult Blood (Negative) Urine Nitrite (Negative) Urine Bilirubin (Negative) Urine Urobilinogen (0.2-1.0) Ur Leukocyte Esterase (Negative) Urine RBC (0-5) /hpf Urine WBC (0-5) /hpf Ur Squamous Epith Cells (0-5) /hpf Urine Bacteria (FEW) /hpf Urine Mucus (FEW) /hpf Meds: Medications Discontinued Medications Generic Name Dose Route Start Last Admin Trade Name Meggan PRN Reason Stop Dose Admin Magnesium Citrate 240 ml 04/30/19 01:20 04/30/19 01:28 Citrate Of Magnesia PO 04/30/19 01:21 240 ml ONETIME ONE Administration - Radiology Interpretation Free Text/Narrative:: 74-year-old female presents the ED with a host of nonspecific complaints. Chief complaint was inability to breathe through her nose and a sense of shortness of breath or dyspnea. No cough or sputum production lungs are clear to auscultation. She has generalized myalgia and bone pain. She did have a Prolia injection earlier this morning in clinic for osteoporosis. Should be the second when she's had the last was over 13 months ago. She appears to be mildly anxious. Vital signs for the most part stable. Her other problem is constipation with no good bowel movement for the last 4-5 days and feels abdominally bloated. Plan labs to be performed. One view -- x-ray of the abdomen to done. Offered analgesia but she declined at this time. Stability of environmental allergens causing her allergic rhinitis symptoms at this time as I do not see any signs of significant viral infection. Possible diffuse myalgia secondary to probably a injection. No active synovitis appreciated on examination. The sedimentation rate and CRP carried out. - Re-Assessments/Exams Free Text/Narrative Re-Assessment/Exam: 04/30/19 00:31 KUB reveals substantial constipation with stool filling most of the colon. No air-fluid levels to suggest obstruction. She has a right-sided total hip replacement. Minimal arthritis of pressure on left hip exam. 04/30/19 00:31 Labs reveal a normal white count at 5.96 differential pending hemoglobin is 12.5 with hematocrit of 37.0. MCV is slightly elevated at 98.4 and associates follow-up with a B12 and folic acid level. Reticulocyte count is 240,000. Urinalysis is normal. 04/30/19 01:17 Differential shows 56% neutrophils no bands cells. The slight shows 1+ macrocytosis and 1+ stomatocytes. Sed Rate is 10. Sodium 135 with a potassium slightly low at 3.4. Chloride is 99 with a bicarbonate 27. Anion gap is 12.4 with a BUN of 11. Creatinine is 0.9. Glucose is 94 the calcium of 8.8. Magnesium is 1.8. Liver function is normal. C-reactive protein less than 0.2. BNP is 87. Total protein 6.8 with a albumin fraction of 3.9. 04/30/19 02:10 Patient advised to use Zyrtec 10 mg by mouth if her nose remains congested on a daily basis as I suspect it is environmental allergens causing this. I do not believe this is an adverse affect of Prolia.. The problem may be causing some diffuse myalgia and arthralgia. No signs of systemic infection with a sedimentation rate of 10 and a CRP of less than 0.2. She will take Citroma 8 ounces later this morning mixed with juice of choice 6 ounces by mouth. Should provide bowel cleanse. She has medication at home that she can take for diffuse ache i.e. Motrin, Tylenol or Paguate if needed. Departure - Departure Time of Disposition: 01:18 Disposition: Home, Self-Care 01 Condition: Fair Clinical Impression: Constipation by delayed colonic transit, Nose congestion, Myalgia Abdominal pain Qualifiers: Abdominal location: right lower quadrant Qualified Code(s): R10.31 - Right lower quadrant pain - Discharge Information *PRESCRIPTION DRUG MONITORING PROGRAM REVIEWED*: Not Applicable *COPY OF PRESCRIPTION DRUG MONITORING REPORT IN PATIENT ABDIAS: Not Applicable Instructions: Constipation, Adult, [id number] Referrals: Martin Agustin MD [Primary Care Provider] - Forms: ED Department Discharge Additional Instructions: Evaluation the emergency room tonight in regards to development of nasal congestion and a subjective sensation of shortness of breath due to this. No stones appeared to be mildly swollen on the inside suggestive of an allergy basis. Be due to outside allergens this time of year. Suggest Zyrtec 10 mg once daily to bring this under control if it persists. Also have generalized aches and pains which may or may not be related to probably a injection. Lab tests did not show any signs of infection or significant inflammation in any of your muscles or bones. Abdominal x-ray confirms clinical history of constipation with increased stool throughout the entire foreign half feet of colon. Suggest use of magnesium citrate later this morning when you get up. Suggest 8 ounces mixed with 6 ounces of juice of choice or Gatorade/Powerade taken by mouth once. This will usually start to work in an hour to an bowels will likely move for 5 times often ending in some diarrhea. His usually does not cause any cramping pain. Note make sure you take her thyroid pill at least a half an hour to an hour before taking the magnesium citrate medication as it will not allow your thyroid medicine to be absorbed. Lab work suggest that your red blood cells are slightly enlarged suggesting possibility of B12/folic acid deficiency. Suggest taking a vitamin B supplement such as Centrum once daily with food. Next time you're in your doctor's office asked them to check your B12 and folic acid levels in your blood. If generalized muscle and bone pain continues 6 it is okay to take Tylenol or Motrin or stronger pain medicine if needed. Off and probably will cause bone ache for about 3 days after injection. Follow-up with your personal doctor if any further problems develop or problems continue. - My Orders Last 24 Hours: My Active Orders 04/29/19 23:53 Abdomen 1V Flat [CR] Stat - Assessment/Plan Last 24 Hours: My Active Orders 04/29/19 23:53 Abdomen 1V Flat [CR] Stat
[2019-04-30] MEDS ORDERED: Magnesium Citrate Solution 296 ML Bottle PO ONE (01:20)
--- NOTE | 2019-04-30 08:18 | CR ---
Abdomen: Supine view of the abdomen was obtained. Comparison: Prior abdominal x-ray of 03/18/18. Right hip prosthesis is seen. Bowel gas pattern is normal. Calcifications are seen within the right pelvis most likely due to phleboliths which are stable. Mild vascular calcification is seen. Impression: 1. Incidental findings. Nothing acute is seen on supine abdominal x-ray. Diagnostic code #2
== END 2019-04-30 01:30 | disposition home or self-care (01) ==
LOC: JD.ED 22:18
DX: K59.01 Slow transit constipation (principal); R09.81 Nasal congestion; M79.18 Myalgia, other site; R10.31 Right lower quadrant pain; I10 Essential (primary) hypertension; K21.9 Gastro-esophageal reflux disease without esophagitis; E03.9 Hypothyroidism, unspecified; Z88.0 Allergy status to penicillin; Z88.5 Allergy status to narcotic agent; Z88.1 Allergy status to other antibiotic agents; Z88.8 Allergy status to other drugs, medicaments and biological substances
CPT/HCPCS: 36415; 74018; 80053; 81001; 83735; 83880; 85007; 85027; 85652; 86140; 99283; A9270

== ENCOUNTER 2019-12-03 15:54 | Emergency (ER) | payer MEDICARE, OTHER ==
[2019-12-03 16:08] VITALS: BP 161/69; PULSE 66
--- NOTE | 2019-12-03 17:39 | EDM.PDOC ---
<Jasmin Hester - Last Filed: 12/03/19 17:51> ED HPI GENERAL MEDICAL PROBLEM - General Chief Complaint: Neck Problem Stated Complaint: FEELING REALLY FUNNY Time Seen by Provider: 12/03/19 17:18 Source of Information: Reports: Patient History Limitations: Reports: No Limitations - History of Present Illness INITIAL COMMENTS - FREE TEXT/NARRATIVE: 74-year-old female presents with left sided neck and head pain that started early this afternoon while preparing food. She states that the pain started in the neck and moved to her head. She notes that the pain seems to be "sitting" on her head and is an aching/throbbing sensation of about 4/10 but was an 8/10 earlier. The patient has chronic neck pain that she regularly treats with massage, heat, ice, and emu oil. She has tried all of those treatments, as well as ibuprofen, with no relief today. She states she also took a muscle relaxer that she was prescribed a year ago for her hip surgery, this did not seem to help. The patient denies injury to the neck and head. She also denies chest pain , shortness of breath, ear pain, and changes to vision and hearing. 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: motrin,ice, emu cream Left Neck Pain Score (Numeric/FACES): 8 - Related Data Allergies Allergy/AdvReac Type Severity Reaction Status Date / Time cefaclor [From Ceclor] Allergy Cannot Verified 04/29/19 22:29 Remember cephalexin monohydrate Allergy Cannot Verified 04/29/19 22:29 [From Keflex] Remember codeine Allergy Cannot Verified 04/29/19 22:29 Remember Penicillins Allergy Hives Verified 04/29/19 22:29 Home Meds: Home Meds Losartan [Cozaar] 50 mg PO DAILY 06/26/16 [History] Calcium Carbonate/Vitamin D3 [Calcium 600 + Vit D Tablet] 1 each PO DAILY [History] Fish Oil/[place]-3 Fatty Acids [Fish Oil] 1 gm PO DAILY 05/17/17 [History] Levothyroxine 75 mcg PO DAILY 01/22/19 [History] Cholecalciferol (Vitamin D3) [Vitamin D3] 2,000 unit PO DAILY 04/29/19 [History] Denosumab [Prolia] 60 mg IM ASDIRECTED 04/29/19 [History] Orphenadrine [Norflex] 100 mg PO BID PRN #20 tab 12/03/19 [Rx] Past Medical History HEENT History: Reports: Impaired Vision Other HEENT History: WEARS CORRECTIVE LENSES Cardiovascular History: Reports: Hypertension 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 History: Reports: GERD 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: Musculoskeletal History: Reports: Neck Pain, Chronic Psychiatric History: Reports: Anxiety, Other (See Below) Endocrine/Metabolic History: Reports: Hypothyroidism - Infectious Disease History Infectious Disease History: Reports: Chicken Pox, Measles, Shingles - Past Surgical History HEENT Surgical History: Reports: Tonsillectomy Female Surgical History: Reports: Hysterectomy Musculoskeletal Surgical History: Reports: Hip Replacement, ORIF Social & Family History - Tobacco Use Smoking Status *Q: Never Smoker - Caffeine Use Caffeine Use: Reports: Coffee - Recreational Drug Use Recreational Drug Use: No - Living Situation & Occupation Living situation: Reports: , with Spouse Occupation: Retired ED ROS GENERAL - Review of Systems Review Of Systems: See Below Constitutional: Reports: No Symptoms HEENT: Reports: No Symptoms Respiratory: Reports: No Symptoms Cardiovascular: Reports: No Symptoms GI/Abdominal: Reports: No Symptoms : Reports: No Symptoms Musculoskeletal: Reports: Neck Pain (left ), Shoulder Pain (left), Muscle Stiffness (left side of neck) Skin: Reports: No Symptoms Neurological: Reports: Headache. Denies: Dizziness, Trouble Speaking, Difficulty Walking Psychiatric: Reports: No Symptoms Hematologic/Lymphatic: Reports: No Symptoms ED EXAM, UPPER BACK/NECK PAIN - Physical Exam Exam: See Below Exam Limited By: No Limitations General Appearance: Alert, WD/WN, No Apparent Distress Eye Exam: Bilateral Eye: EOMI, Normal Inspection, PERRL Ears Exam: Normal External Exam, Normal Canal, Hearing Grossly Normal, Normal TMs Nose Exam: Normal Inspection, Normal Mucousa, No Blood Throat/Mouth Exam: Normal Inspection, Normal Lips, Normal Teeth, Normal Gums, Normal Oropharynx, Normal Voice, No Airway Compromise Head Exam: Atraumatic, Normocephalic Neck Exam: Normal Inspection, Painful Range of Motion, Stiff Neck (lack of ROM on left side of neck ), Tenderness (left sided), Tender Lateral (left sided ), Other (supraclavicular bulge (muscle knot)). No: Spinous Processes Tender, Tender Midline Nexus Criteria: No: Posterior, Midline Cervical Tenderness, Evidence of Intoxication, Altered Level of Consciousness, Focal Neurological Deficit, Painful Distraction Injuries Cardiovascular/Respiratory: Regular Rate, Rhythm, No M/R/G, Normal Peripheral Pulses, Normal Breath Sounds, No Respiratory Distress Back Exam: Normal Inspection, Full Range of Motion Extremities: Normal Inspection, Non-Tender, Normal Capillary Refill, Limited Range of Motion (right arm (chronic)), Other (no pain/tingling with cervical compression test) Neurologic: No Motor/Sensory Deficits, Alert, Normal Mood/Affect, Oriented x 3 Psychiatric: Normal Affect, Normal Mood Skin Exam: Normal Color, Warm/Dry, Other (telangectasias over C7 prominence) Lymphatic: No Adenopathy Course - Vital Signs Last Recorded V/S: Last Vital Signs Temp 97.4 F 12/03/19 16:07 Pulse 66 12/03/19 16:07 Resp 20 12/03/19 16:07 BP 161/69 H 12/03/19 16:07 Pulse Ox 99 12/03/19 16:07 Departure - Departure Disposition: Home, Self-Care 01 Clinical Impression: Cervical muscle strain Qualifiers: Encounter type: initial encounter Qualified Code(s): S16.1XXA - Strain of muscle, fascia and tendon at neck level, initial encounter - Discharge Information Prescriptions: Orphenadrine [Norflex] 100 mg PO BID PRN #20 tab PRN Reason: Spasms Instructions: Muscle Strain, [id number] Referrals: Martin Agustin MD [Primary Care Provider] - Forms: ED Department Discharge Additional Instructions: You were evaluated in the ER today regarding your left-sided neck pain. You are most likely suffering from a neck muscle strain, you were given a prescription for Norflex, a muscle relaxer, please take 1 tab twice daily as needed for muscle spasms/neck pain. Please take 600 mg ibuprofen every 6 hours for further pain relief, do not exceed 3200 mg ibuprofen in a 24-hour time span. You may also use ice/heat packs to the area as tolerated for further pain relief. Please return to the ER at any time if your symptoms change or worsen. Sepsis Event Note - Evaluation Sepsis Screening Result: No Definite Risk - Focused Exam Vital Signs: Vital Signs Temp Pulse Resp BP Pulse Ox 12/03/19 16:07 97.4 F 66 20 161/69 H 99 Date Exam was Performed: 12/03/19 Time Exam was Performed: 17:51 <Dawna Ramírez - Last Filed: 12/03/19 17:58> Course - Re-Assessments/Exams Free Text/Narrative Re-Assessment/Exam: 12/03/19 17:55 I have read and reviewed the student's HPI and examined the patient and agree with REENA Funez-student. Patient presents to the ED for neck pain, I do believe this was a musculoskeletal strain in nature. I will provide the patient with some Norflex and have her take some ibuprofen at home with other general management, and have her follow-up in a few days time if not much better. Departure - Departure Time of Disposition: 17:56 Condition: Fair - Discharge Information *PRESCRIPTION DRUG MONITORING PROGRAM REVIEWED*: No *COPY OF PRESCRIPTION DRUG MONITORING REPORT IN PATIENT ABDIAS: No Sepsis Event Note - Focused Exam Date Exam was Performed: 12/03/19 Time Exam was Performed: 17:55
== END 2019-12-03 18:05 | disposition home or self-care (01) ==
LOC: JD.ED 15:54
DX: S16.1XXA Strain of muscle, fascia and tendon at neck level, initial encounter (principal); I10 Essential (primary) hypertension; E03.9 Hypothyroidism, unspecified; Z88.1 Allergy status to other antibiotic agents; Z88.5 Allergy status to narcotic agent; Z88.0 Allergy status to penicillin; Z79.899 Other long term (current) drug therapy; Z79.890 Hormone replacement therapy; X58.XXXA Exposure to other specified factors, initial encounter; Y93.G1 Activity, food preparation and clean up; Y92.009 Unspecified place in unspecified non-institutional (private) residence as the place of occurrence of the external cause
CPT/HCPCS: 99283

== ENCOUNTER 2020-05-17 19:43 | Emergency (ER) | payer MEDICARE, OTHER ==
[2020-05-17 20:24] VITALS: BP 131/60; PULSE 63
[2020-05-17] MEDS ORDERED: Potassium Chloride 20 MEQ Tab.ER PO ONE (22:03)
[2020-05-17] MEDS ORDERED: Magnesium Citrate Solution 296 ML Bottle PO ONE (22:04)
--- NOTE | 2020-05-17 22:05 | EDM.PDOC ---
ED HPI GENERAL MEDICAL PROBLEM - General Chief Complaint: Abdominal Pain Stated Complaint: BODY ACHES/WEAK/ABDOMINAL PAIN Time Seen by Provider: 05/17/20 21:14 Source of Information: Reports: Patient, Family History Limitations: Reports: No Limitations - History of Present Illness INITIAL COMMENTS - FREE TEXT/NARRATIVE: Patient is a 75-year-old female who presents to the emergency department with generalized body aches, abdominal bloating, hip and back pain, and urinary frequency for the last 2 weeks. She states symptoms initially began with increased right hip pain. She was placed on tramadol and prednisone by her primary care provider for the treatment of this. She feels of the tramadol made her constipated. She took a laxative last week and was able to have a bowel movement, however states she has not been very regular since that time. She passed a small amount of stool each day, however, and has been passing gas. She has had some mild nausea but no vomiting. She also complains of urinary frequency. States she gets the urge to go to void but then only goes a small amount. She denies any fever, chills, vomiting, or diarrhea. She states that she had drive-through COVID testing done the other day and it was found to be negative. She denies chest pain, cough, congestion, or shortness of breath. Abdomen Pain Score (Numeric/FACES): 9 - Related Data Allergies Allergy/AdvReac Type Severity Reaction Status Date / Time cefaclor [From Ceclor] Allergy Cannot Verified 04/29/19 22:29 Remember cephalexin monohydrate Allergy Cannot Verified 04/29/19 22:29 [From Keflex] Remember codeine Allergy Cannot Verified 04/29/19 22:29 Remember Penicillins Allergy Hives Verified 04/29/19 22:29 Home Meds: Home Meds Losartan [Cozaar] 50 mg PO DAILY 06/26/16 [History] Calcium Carbonate/Vitamin D3 [Calcium 600 + Vit D Tablet] 1 each PO DAILY 05/17/17 [History] Fish Oil/[place]-3 Fatty Acids [Fish Oil] 1 gm PO DAILY 05/17/17 [History] Levothyroxine 75 mcg PO DAILY 01/22/19 [History] Cholecalciferol (Vitamin D3) [Vitamin D3] 2,000 unit PO DAILY 04/29/19 [History] Ciprofloxacin HCl [Cipro] 250 mg PO BID 3 Days #6 tablet 05/17/20 [Rx] Past Medical History HEENT History: Reports: Impaired Vision Other HEENT History: WEARS CORRECTIVE LENSES Cardiovascular History: Reports: Hypertension 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 History: Reports: GERD 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: Musculoskeletal History: Reports: Neck Pain, Chronic Psychiatric History: Reports: Anxiety Endocrine/Metabolic History: Reports: Hypothyroidism - Infectious Disease History Infectious Disease History: Reports: Chicken Pox, Measles, Shingles - Past Surgical History HEENT Surgical History: Reports: Tonsillectomy Female Surgical History: Reports: Hysterectomy Musculoskeletal Surgical History: Reports: Hip Replacement, ORIF Social & Family History - Tobacco Use Smoking Status *Q: Former Smoker Used Tobacco, but Quit: Yes Month/Year Tobacco Last Used: 3 years - Caffeine Use Caffeine Use: Reports: Coffee - Recreational Drug Use Recreational Drug Use: No - Living Situation & Occupation Living situation: Reports: , with Spouse Occupation: Retired ED ROS GENERAL - Review of Systems Review Of Systems: See Below Constitutional: Reports: Weakness. Denies: Fever, Chills HEENT: Reports: No Symptoms Respiratory: Reports: No Symptoms. Denies: Shortness of Breath, Cough Cardiovascular: Reports: No Symptoms Endocrine: Reports: No Symptoms GI/Abdominal: Reports: Abdominal Pain, Constipation, Flatus, Nausea, Other (Abdominal bloating). Denies: Diarrhea, Vomiting : Reports: No Symptoms Musculoskeletal: Reports: Back Pain, Other (Hip pain) Skin: Reports: No Symptoms Neurological: Reports: No Symptoms. Denies: Confusion, Dizziness, Headache Psychiatric: Reports: No Symptoms Hematologic/Lymphatic: Reports: No Symptoms Immunologic: Reports: No Symptoms ED EXAM, GI/ABD - Physical Exam Exam: See Below General Appearance: Alert, WD/WN, No Apparent Distress Respiratory/Chest: No Respiratory Distress, Lungs Clear, Normal Breath Sounds, No Accessory Muscle Use, Chest Non-Tender Cardiovascular: Normal Peripheral Pulses, Regular Rate, Rhythm, No Edema, No Gallop, No JVD, No Murmur, No Rub GI/Abdominal Exam: Normal Bowel Sounds, Soft, Non-Tender, No Organomegaly, No Distention, No Abnormal Bruit, No Mass, Pelvis Stable. No: Distended Back Exam: No: CVA Tenderness (L), CVA Tenderness (R) Neurological: Alert, Oriented, CN II-XII Intact, Normal Cognition, Normal Gait, Normal Reflexes, No Motor/Sensory Deficits Psychiatric: Normal Affect, Normal Mood Skin Exam: Warm, Dry, Intact, Normal Color, No Rash Course - Vital Signs Last Recorded V/S: Last Vital Signs Temp 98.1 F 05/17/20 20:22 Pulse 63 05/17/20 20:22 Resp 20 05/17/20 20:22 BP 131/60 05/17/20 20:22 Pulse Ox 99 05/17/20 20:22 - Orders/Labs/Meds Orders: Active Orders 24 hr Category Date Time Status Abdomen 1V Flat [CR] Stat Exams 05/17/20 21:38 Taken CULTURE URINE [RM] Stat Lab 05/17/20 20:45 Received Labs: Laboratory Tests 05/17/20 05/17/20 05/17/20 Range/Units 20:45 20:50 20:50 WBC 6.98 (3.98-10.04) K/mm3 RBC 3.83 L (3.98-5.22) M/mm3 Hgb 13.1 (11.2-15.7) gm/dl Hct 38.2 (34.1-44.9) % MCV 99.7 H (79.4-94.8) fl MCH 34.2 H (25.6-32.2) pg MCHC 34.3 (32.2-35.5) g/dl RDW Std Deviation 43.0 (36.4-46.3) fL Plt Count 307 (182-369) K/mm3 MPV 10.8 (9.4-12.3) fl Neut % (Auto) 67.0 (34.0-71.1) % Lymph % (Auto) 23.8 (19.3-51.7) % [place] % (Auto) 5.9 (4.7-12.5) % Eos % (Auto) 2.6 (0.7-5.8) Baso % (Auto) 0.4 (0.1-1.2) % Neut # (Auto) 4.68 (1.56-6.13) K/mm3 Lymph # (Auto) 1.66 (1.18-3.74) K/mm3 [place] # (Auto) 0.41 H (0.24-0.36) K/mm3 Eos # (Auto) 0.18 (0.04-0.36) K/mm3 Baso # (Auto) 0.03 (0.01-0.08) K/mm3 Sodium 136 (136-145) mEq/L Potassium 3.1 L (3.5-5.1) mEq/L Chloride 95 L (98-107) mEq/L Carbon Dioxide 31 (21-32) mEq/L Anion Gap 13.1 (5-15) BUN 11 (7-18) mg/dL Creatinine 0.9 (0.55-1.02) mg/dL Est Cr Clr Drug Dosing 42.06 mL/min Estimated GFR (MDRD) > 60 (>60) mL/min BUN/Creatinine Ratio 12.2 L (14-18) Glucose 105 (83-115) mg/dL Calcium 10.0 (8.5-10.1) mg/dL Total Bilirubin 0.5 (0.2-1.0) mg/dL AST 28 (15-37) U/L ALT 39 (14-59) U/L Alkaline Phosphatase 52 (46-116) U/L C-Reactive Protein 0.4 (<1.0) mg/dL Total Protein 7.8 (6.4-8.2) g/dl Albumin 4.3 (3.4-5.0) g/dl Globulin 3.5 gm/dL Albumin/Globulin Ratio 1.2 (1-2) Lipase 222 (73-393) U/L Urine Color Yellow (Yellow) Urine Appearance Clear (Clear) Urine pH 6.5 (5.0-8.0) Ur Specific [place] 1.010 (1.005-1.030) Urine Protein Negative (Negative) Urine Glucose (UA) Negative (Negative) Urine Ketones Trace H (Negative) Urine Occult Blood Negative (Negative) Urine Nitrite Negative (Negative) Urine Bilirubin Negative (Negative) Urine Urobilinogen 0.2 (0.2-1.0) Ur Leukocyte Esterase 1+ H (Negative) Urine RBC 0-5 (0-5) /hpf Urine WBC 5-10 H (0-5) /hpf Ur Squamous Epith Cells 5-10 H (0-5) /hpf Urine Bacteria Moderate H (FEW) /hpf Urine Mucus Not seen (FEW) /hpf Meds: Medications Discontinued Medications Generic Name Dose Route Start Last Admin Trade Name Freq PRN Reason Stop Dose Admin Magnesium Citrate 296 ml 05/17/20 22:04 Citrate Of Magnesia PO 05/17/20 22:05 ONETIME ONE Potassium Chloride 40 meq 05/17/20 22:03 Klor-Con M20 PO 05/17/20 22:04 ONETIME ONE - Re-Assessments/Exams Free Text/Narrative Re-Assessment/Exam: Patient is a 75-year-old female who presents to the emergency department with a wide variety of nonspecific complaints. She states 2 weeks ago she started having right hip pain. This has improved but is still present. She complains of abdominal bloating for the last 2 weeks which she attributes to constipation. She did take a laxative last week and did have a bowel movement but since then has had limited. She has some generalized back pain but cannot localize it to the area of her kidneys. She does have a history of back pain as well. She complains of urinary frequency but denies burning with urination. She has had no fever or chills. Denies any vomiting but states she is felt "maybe a little nauseous ". We will do basic blood work as well as an abdomen flat x-ray. Vital signs on triage were normal. She is afebrile and oxygen saturation is 99% on room air 05/17/20 22:09 Hematology was significant for potassium slightly low at 3.1, but was otherwise unremarkable. Urinalysis was significant for 1+ leukocyte esterase, 5-10 WBCs, and moderate bacteria. X-ray of the abdomen does show a moderate amount of stool in the colon as well as air. It is a normal bowel gas pattern. She feels that she has not been having regular bowel movements, therefore I will send her home with a bottle of magnesium citrate with instructions to drink only half the bottle in the morning to stimulate her bowels. She has been given a dose of oral KCl 40 mEq in ER to replace potassium. She has been educated on consuming potassium rich foods. We will send a prescription for Cipro for urinary tract infection as she does complain of back pain, however does not have CVA tenderness. This will cover for any possible kidney infection, however my suspicion for this is low. Urine has been sent for culture. I did recommend that she schedule a follow-up appointment in the clinic with her primary care provider to ensure that her symptoms are improving. If anything should worsen, she should return to the emergency department. Departure - Departure Time of Disposition: 22:11 Disposition: Home, Self-Care 01 Condition: Good Clinical Impression: Abdominal pain Urinary tract infection Qualifiers: Urinary tract infection type: site unspecified Hematuria presence: without hematuria Qualified Code(s): N39.0 - Urinary tract infection, site not specified - Discharge Information *PRESCRIPTION DRUG MONITORING PROGRAM REVIEWED*: No *COPY OF PRESCRIPTION DRUG MONITORING REPORT IN PATIENT ABDIAS: No Prescriptions: Ciprofloxacin HCl [Cipro] 250 mg PO BID 3 Days #6 tablet Instructions: Urinary Tract Infection, Adult, [id number], Constipation, Adult Referrals: Martin Agustin MD [Primary Care Provider] - Forms: ED Department Discharge Additional Instructions: You were seen in the emergency department today for abdominal bloating, generalized body aches, and frequency of urination. Work-up included blood work, urinalysis, and an x-ray of your abdomen. You have a mild urinary tract infection. Your potassium was found to be low at 3.1, therefore you did receive a dose of potassium in the ER. X-ray of your abdomen does show a moderate amount of stool in your colon. You have been sent home with a bottle of magnesium citrate. Recommend that you take half this bottle tomorrow morning to stimulate your bowels to move. A prescription for Cipro has been sent to [facility] on [address]. Take this medication as prescribed for your urinary tract infection. Recommend that you consume potassium rich foods to ensure that you are potassium level stays in the normal range. Also recommend that you schedule follow-up appoint with your primary care provider for the end of the week to ensure that you are feeling better. Return to the ER as needed. Sepsis Event Note (ED) - Evaluation Sepsis Screening Result: No Definite Risk - Focused Exam Vital Signs: Vital Signs Temp Pulse Resp BP Pulse Ox 05/17/20 20:22 98.1 F 63 20 131/60 99 - My Orders Last 24 Hours: My Active Orders 05/17/20 20:45 CULTURE URINE [RM] Stat 05/17/20 21:38 Abdomen 1V Flat [CR] Stat - Assessment/Plan Last 24 Hours: My Active Orders 05/17/20 20:45 CULTURE URINE [RM] Stat 05/17/20 21:38 Abdomen 1V Flat [CR] Stat
--- NOTE | 2020-05-18 05:51 | CR ---
Abdomen: Supine view of the abdomen was obtained. Comparison: Prior abdominal x-ray of 04/30/19. Right hip prosthesis is seen. Components are aligned. Vascular calcification is noted. Mild endplate spurring is noted within the spine. Bowel gas pattern is normal. Calcifications are seen within the pelvis compatible with phleboliths. Impression: 1. Nothing acute is seen on supine abdominal x-ray. Diagnostic code #2 This report was dictated in MDT
== END 2020-05-17 22:38 | disposition home or self-care (01) ==
LOC: JD.ED 19:43
DX: N39.0 Urinary tract infection, site not specified (principal); E03.9 Hypothyroidism, unspecified; I10 Essential (primary) hypertension; Z88.0 Allergy status to penicillin; Z88.1 Allergy status to other antibiotic agents; Z88.5 Allergy status to narcotic agent; Z79.899 Other long term (current) drug therapy; Z87.891 Personal history of nicotine dependence
CPT/HCPCS: 36415; 74018; 80053; 81001; 83690; 85025; 86140; 87086; 87088; 87186; 93005; 99284; A9270; 99283

== ENCOUNTER 2020-10-19 15:17 | Emergency (ER) | payer MEDICARE, OTHER ==
[2020-10-19] MEDS ORDERED: Sodium Chloride 0.9% 10 ML Syringe FLUSH PRN (15:55)
[2020-10-19] MEDS ORDERED: Famotidine 20 MG/2 ML SDV IVPUSH ONE (15:55)
[2020-10-19] MEDS ORDERED: Ondansetron 4 MG/2 ML SDV IVPUSH ONE (15:55)
[2020-10-19 17:20] VITALS: BP 110/59; PULSE 73
--- NOTE | 2020-10-19 17:59 | EDM.PDOC ---
ED HPI GENERAL MEDICAL PROBLEM - General Chief Complaint: Abdominal Pain Stated Complaint: BODYACHE/ABDOMINAL PAIN Time Seen by Provider: 10/19/20 15:36 Source of Information: Reports: Patient, RN Notes Reviewed - History of Present Illness INITIAL COMMENTS - FREE TEXT/NARRATIVE: 75 yr old female with abd pain yesterday and today. It fluctuates in severity, mild at time of exam, at times worse. There has been nausea, loss of appetite, no vomiting or diarhea. She has been intermitantly constipated. No chest pain, cough, fever or chills. Still has her appendix and GB. Epigastric Pain Score (Numeric/FACES): 7 - Related Data Allergies Allergy/AdvReac Type Severity Reaction Status Date / Time cefaclor [From Ceclor] Allergy Cannot Verified 10/19/20 15:38 Remember cephalexin monohydrate Allergy Cannot Verified 10/19/20 15:38 [From Keflex] Remember codeine Allergy Cannot Verified 10/19/20 15:38 Remember Penicillins Allergy Hives Verified 10/19/20 15:38 Home Meds: Home Meds Losartan [Cozaar] 50 mg PO DAILY 06/26/16 [History] Calcium Carbonate/Vitamin D3 [Calcium 600 + Vit D Tablet] 1 each PO DAILY 05/17/17 [History] Fish Oil/[place]-3 Fatty Acids [Fish Oil] 1 gm PO DAILY 05/17/17 [History] Levothyroxine 75 mcg PO DAILY 01/22/19 [History] Cholecalciferol (Vitamin D3) [Vitamin D3] 2,000 unit PO DAILY 04/29/19 [History] Past Medical History HEENT History: Reports: Impaired Vision Other HEENT History: WEARS CORRECTIVE LENSES Cardiovascular History: Reports: Hypertension 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 History: Reports: GERD 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: Musculoskeletal History: Reports: Neck Pain, Chronic Psychiatric History: Reports: Anxiety Endocrine/Metabolic History: Reports: Hypothyroidism - Infectious Disease History Infectious Disease History: Reports: Chicken Pox, Measles, Shingles - Past Surgical History HEENT Surgical History: Reports: Tonsillectomy Female Surgical History: Reports: Hysterectomy Musculoskeletal Surgical History: Reports: Hip Replacement, ORIF Other Musculoskeletal Surgeries/Procedures:: back surgery Social & Family History - Tobacco Use Tobacco Use Status *Q: Never Tobacco User - Caffeine Use Caffeine Use: Reports: Coffee - Recreational Drug Use Recreational Drug Use: No - Living Situation & Occupation Living situation: Reports: , with Spouse Occupation: Retired ED ROS GENERAL - Review of Systems Review Of Systems: See Below Constitutional: Reports: Fever HEENT: Reports: No Symptoms Respiratory: Reports: No Symptoms Cardiovascular: Denies: Chest Pain GI/Abdominal: Reports: Abdominal Pain (mild upper mid abd pain), Constipation, Decreased Appetite, Nausea. Denies: Diarrhea, Hematochezia, Melena, Vomiting Musculoskeletal: Reports: No Symptoms. Denies: Back Pain Neurological: Reports: No Symptoms ED EXAM, GI/ABD - Physical Exam Exam: See Below Head: Atraumatic Neck: Supple Respiratory/Chest: No Respiratory Distress, Lungs Clear, Normal Breath Sounds Cardiovascular: Regular Rate, Rhythm GI/Abdominal Exam: Soft, Non-Tender Neurological: Alert, Oriented, No Motor/Sensory Deficits Skin Exam: Warm, Dry, Normal Color Course - Vital Signs Last Recorded V/S: Last Vital Signs Temp 97.9 F 10/19/20 15:33 Pulse 73 10/19/20 17:15 Resp 16 10/19/20 17:15 BP 110/59 L 10/19/20 17:15 Pulse Ox 97 10/19/20 17:15 - Orders/Labs/Meds Labs: Laboratory Tests 10/19/20 10/19/20 10/19/20 Range/Units 16:18 16:18 16:18 WBC 6.45 (3.98-10.04) K/mm3 RBC 3.59 L (3.98-5.22) M/mm3 Hgb 12.1 (11.2-15.7) gm/dl Hct 35.0 (34.1-44.9) % MCV 97.5 H (79.4-94.8) fl MCH 33.7 H (25.6-32.2) pg MCHC 34.6 (32.2-35.5) g/dl RDW Std Deviation 41.5 (36.4-46.3) fL Plt Count 262 (182-369) K/mm3 MPV 10.6 (9.4-12.3) fl Neut % (Auto) 73.9 H (34.0-71.1) % Lymph % (Auto) 17.1 L (19.3-51.7) % [place] % (Auto) 6.7 (4.7-12.5) % Eos % (Auto) 1.9 (0.7-5.8) Baso % (Auto) 0.2 (0.1-1.2) % Neut # (Auto) 4.78 (1.56-6.13) K/mm3 Lymph # (Auto) 1.10 L (1.18-3.74) K/mm3 [place] # (Auto) 0.43 H (0.24-0.36) K/mm3 Eos # (Auto) 0.12 (0.04-0.36) K/mm3 Baso # (Auto) 0.01 (0.01-0.08) K/mm3 Sodium 135 L (136-145) mEq/L Potassium 3.6 (3.5-5.1) mEq/L Chloride 99 (98-107) mEq/L Carbon Dioxide 26 (21-32) mEq/L Anion Gap 13.6 (5-15) BUN 13 (7-18) mg/dL Creatinine 1.0 (0.55-1.02) mg/dL Est Cr Clr Drug Dosing 37.85 mL/min Estimated GFR (MDRD) 54 (>60) mL/min BUN/Creatinine Ratio 13.0 L (14-18) Glucose 103 (83-115) mg/dL Calcium 9.0 (8.5-10.1) mg/dL Total Bilirubin 0.6 (0.2-1.0) mg/dL AST 30 (15-37) U/L ALT 35 (14-59) U/L Alkaline Phosphatase 58 (46-116) U/L C-Reactive Protein <0.2 (<1.0) mg/dL Total Protein 6.9 (6.4-8.2) g/dl Albumin 3.8 (3.4-5.0) g/dl Globulin 3.1 gm/dL Albumin/Globulin Ratio 1.2 (1-2) Lipase 117 (73-393) U/L Meds: Medications Discontinued Medications Generic Name Dose Route Start Last Admin Trade Name Freq PRN Reason Stop Dose Admin Famotidine 20 mg 10/19/20 15:55 10/19/20 16:22 Pepcid IVPUSH 10/19/20 15:56 20 mg ONETIME ONE Administration Ondansetron HCl 4 mg 10/19/20 15:55 10/19/20 16:21 Zofran IVPUSH 10/19/20 15:56 4 mg ONETIME ONE Administration Sodium Chloride 10 ml 10/19/20 15:55 10/19/20 16:21 Saline Flush FLUSH 10 ml ASDIRECTED PRN Administration Keep Vein Open - Re-Assessments/Exams Free Text/Narrative Re-Assessment/Exam: 10/21/20 08:02 Labs nl, X ray abd., no acute findings. Pt has been resting comfortably here in the ED. Discharge isntr. as documented. Departure - Departure Time of Disposition: 18:29 Disposition: Home, Self-Care 01 Condition: Fair Clinical Impression: Abdominal pain Constipation Qualifiers: Constipation type: unspecified constipation type Qualified Code(s): K59.00 - Constipation, unspecified - Discharge Information Instructions: Constipation, Adult, [id number], Abdominal Pain, Adult, [id number] Referrals: Martin Agustin MD [Primary Care Provider] - Forms: ED Department Discharge Additional Instructions: Take stool softner or mild laxative this evening to help you colon clear out better. Careful bland diet as tolerated, avoid fatty and spicy foods for 2 to 3 days. Follow up clinic as needed. Return to ED as needed if symptoms worsening in any way. Sepsis Event Note (ED) - Evaluation Sepsis Screening Result: No Definite Risk
--- NOTE | 2020-10-19 19:19 | CR ---
Abdomen: Supine and upright views of the abdomen were obtained. Comparison: Prior abdominal x-rays of 05/17/20 and 04/30/19. Right hip prosthesis is noted. Mild joint space narrowing is seen at the left hip. Vascular calcification is seen. Mild degenerative change is seen within the spine. Calcifications are seen in the pelvis most likely representing phleboliths and arterial calcification. Bowel gas pattern appears normal. No free air is seen. Impression: 1. Multiple findings as noted above. 2. Nothing acute is appreciated. Diagnostic code #2
== END 2020-10-19 18:40 | disposition home or self-care (01) ==
LOC: JD.ED 15:17
DX: K59.00 Constipation, unspecified (principal); R11.0 Nausea; I10 Essential (primary) hypertension; E03.9 Hypothyroidism, unspecified; Z79.899 Other long term (current) drug therapy; Z88.1 Allergy status to other antibiotic agents; Z88.5 Allergy status to narcotic agent; Z88.0 Allergy status to penicillin
CPT/HCPCS: 36415; 74019; 80053; 83690; 85025; 86140; 96374; 96375; 99284; J2405; J3490

== ENCOUNTER 2021-02-11 18:50 | Emergency (ER) | payer MEDICARE, OTHER ==
[2021-02-11 19:15] VITALS: BP 144/78; PULSE 69
--- NOTE | 2021-02-11 19:46 | EDM.PDOC ---
ED HPI GENERAL MEDICAL PROBLEM - General Chief Complaint: Abdominal Pain Stated Complaint: PAIN LEFT SIDE PAIN Time Seen by Provider: 02/11/21 19:06 Source of Information: Reports: Patient History Limitations: Reports: No Limitations - History of Present Illness INITIAL COMMENTS - FREE TEXT/NARRATIVE: This is a 75-year-old female. Onset around noon today with left upper quadrant and right lower quadrant abdominal pain. It kind of waxes and wanes and cramps. Pushing on those areas seem to ease up the pain. She has had no nausea no vomiting. She does have a history of constipation and urinary tract infections. She says she has had normal soft stool and has been regular. There is some vague history of possibly rectal or colon tumors back in 2017 but she says she does not recall anything like that. She does drink a lot of fluids and she has a history of a low potassium at times. She denies any fever chills no cough or congestion. Denies any flank pain or pain that radiates into her lower abdomen. Left Abdomen Pain Score (Numeric/FACES): 5 - Related Data Allergies Allergy/AdvReac Type Severity Reaction Status Date / Time cefaclor [From Ceclor] Allergy Cannot Verified 02/11/21 19:15 Remember cephalexin monohydrate Allergy Cannot Verified 02/11/21 19:15 [From Keflex] Remember codeine Allergy Cannot Verified 02/11/21 19:15 Remember Penicillins Allergy Hives Verified 02/11/21 19:15 Home Meds: Home Meds Losartan [Cozaar] 50 mg PO DAILY 06/26/16 [History] Calcium Carbonate/Vitamin D3 [Calcium 600 + Vit D Tablet] 1 each PO DAILY 05/17/17 [History] Fish Oil/[place]-3 Fatty Acids [Fish Oil] 1 gm PO DAILY 05/17/17 [History] Levothyroxine 75 mcg PO DAILY 01/22/19 [History] Cholecalciferol (Vitamin D3) [Vitamin D3] 2,000 unit PO DAILY 04/29/19 [History] Dicyclomine [Bentyl] 10 mg PO TID PRN #15 cap 02/11/21 [Rx] Ondansetron [Zofran] 4 mg PO Q6H PRN #12 tab 02/11/21 [Rx] Past Medical History HEENT History: Reports: Impaired Vision Other HEENT History: WEARS CORRECTIVE LENSES Cardiovascular History: Reports: Hypertension 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 History: Reports: GERD 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: Musculoskeletal History: Reports: Neck Pain, Chronic Psychiatric History: Reports: Anxiety Endocrine/Metabolic History: Reports: Hypothyroidism - Infectious Disease History Infectious Disease History: Reports: Chicken Pox, Measles, Shingles - Past Surgical History HEENT Surgical History: Reports: Tonsillectomy Cardiovascular Surgical History: Reports: None Female Surgical History: Reports: Hysterectomy Musculoskeletal Surgical History: Reports: Hip Replacement, ORIF Other Musculoskeletal Surgeries/Procedures:: back surgery Social & Family History - Tobacco Use Tobacco Use Status *Q: Former Tobacco User Used Tobacco, but Quit: Yes Month/Year Tobacco Last Used: 3 years ago - Caffeine Use Caffeine Use: Reports: Coffee - Recreational Drug Use Recreational Drug Use: No - Living Situation & Occupation Living situation: Reports: , with Spouse Occupation: Retired ED ROS GENERAL - Review of Systems Review Of Systems: See Below Constitutional: Denies: Fever, Chills HEENT: Reports: No Symptoms Respiratory: Reports: No Symptoms Cardiovascular: Reports: No Symptoms, Palpitations GI/Abdominal: Reports: Abdominal Pain, Other (Normal soft stools). Denies: Distension, Nausea, Vomiting : Denies: Discharge, Dysuria, Flank Pain, Frequency Musculoskeletal: Reports: No Symptoms Skin: Reports: No Symptoms Neurological: Reports: No Symptoms Psychiatric: Reports: No Symptoms Hematologic/Lymphatic: Reports: No Symptoms ED EXAM, GI/ABD - Physical Exam Exam: See Below Exam Limited By: No Limitations General Appearance: Alert, WD/WN, No Apparent Distress, Other (Will have moments during our conversation when she can hold her side like she was having a cramp, left upper quadrant and right lower quadrant area.) Eyes: Bilateral: Normal Appearance Ears: Normal External Exam Throat/Mouth: Normal Voice, No Airway Compromise Head: Normocephalic Neck: Supple Respiratory/Chest: No Respiratory Distress, Lungs Clear, Normal Breath Sounds Cardiovascular: Regular Rate, Rhythm, No Murmur GI/Abdominal Exam: Soft, Tender, Other (She does have tenderness in the suprapubic and slightly right lower quadrant but no masses no rebound no peritoneal irritation, also in the left upper quadrant has tenderness but no p eritoneal signs. Bowel sounds are decreased.). No: Guarding, Rigid, Rebound Back Exam: Full Range of Motion Extremities: Normal Inspection, Normal Range of Motion Neurological: Alert, Oriented Psychiatric: Normal Affect, Normal Mood Skin Exam: Warm, Dry Course - Vital Signs Last Recorded V/S: Last Vital Signs Temp 97.6 F 02/11/21 19:12 Pulse 69 02/11/21 19:12 Resp 16 02/11/21 19:12 BP 144/78 H 02/11/21 19:12 Pulse Ox 99 02/11/21 19:12 - Orders/Labs/Meds Orders: Active Orders 24 hr Category Date Time Status Abdomen 2V AP Flat Upright [CR] Stat Exams 02/11/21 19:41 Taken CULTURE URINE [RM] Stat Lab 02/11/21 21:09 Ordered Labs: Laboratory Tests 02/11/21 02/11/21 02/11/21 Range/Units 19:22 20:20 20:20 WBC 6.26 (3.98-10.04) K/mm3 RBC 3.44 L (3.98-5.22) M/mm3 Hgb 11.7 (11.2-15.7) gm/dl Hct 34.4 (34.1-44.9) % MCV 100.0 H (79.4-94.8) fl MCH 34.0 H (25.6-32.2) pg MCHC 34.0 (32.2-35.5) g/dl RDW Std Deviation 42.6 (36.4-46.3) fL Plt Count 249 (182-369) K/mm3 MPV 10.8 (9.4-12.3) fl Neut % (Auto) 69.0 (34.0-71.1) % Lymph % (Auto) 19.5 (19.3-51.7) % [place] % (Auto) 7.7 (4.7-12.5) % Eos % (Auto) 3.4 (0.7-5.8) Baso % (Auto) 0.2 (0.1-1.2) % Neut # (Auto) 4.33 (1.56-6.13) K/mm3 Lymph # (Auto) 1.22 (1.18-3.74) K/mm3 [place] # (Auto) 0.48 H (0.24-0.36) K/mm3 Eos # (Auto) 0.21 (0.04-0.36) K/mm3 Baso # (Auto) 0.01 (0.01-0.08) K/mm3 Sodium 136 (136-145) mEq/L Potassium 3.4 L (3.5-5.1) mEq/L Chloride 99 (98-107) mEq/L Carbon Dioxide 26 (21-32) mEq/L Anion Gap 14.4 (5-15) BUN 14 (7-18) mg/dL Creatinine 1.1 H (0.55-1.02) mg/dL Est Cr Clr Drug Dosing 34.41 mL/min Estimated GFR (MDRD) 48 (>60) mL/min BUN/Creatinine Ratio 12.7 L (14-18) Glucose 93 (83-115) mg/dL Calcium 8.7 (8.5-10.1) mg/dL Total Bilirubin 0.7 (0.2-1.0) mg/dL AST 26 (15-37) U/L ALT 35 (14-59) U/L Alkaline Phosphatase 62 (46-116) U/L C-Reactive Protein <0.2 (<1.0) mg/dL Total Protein 7.2 (6.4-8.2) g/dl Albumin 3.9 (3.4-5.0) g/dl Globulin 3.3 gm/dL Albumin/Globulin Ratio 1.2 (1-2) Urine Color Light yellow (Yellow) Urine Appearance Clear (Clear) Urine pH 7.0 (5.0-8.0) Ur Specific [place] 1.015 (1.005-1.030) Urine Protein Negative (Negative) Urine Glucose (UA) Negative (Negative) Urine Ketones Negative (Negative) Urine Occult Blood Negative (Negative) Urine Nitrite Negative (Negative) Urine Bilirubin Negative (Negative) Urine Urobilinogen 0.2 (0.2-1.0) Ur Leukocyte Esterase 2+ H (Negative) Urine RBC 0-5 (0-5) /hpf Urine WBC 5-10 H (0-5) /hpf Ur Squamous Epith Cells 0-5 (0-5) /hpf Urine Bacteria Few (FEW) /hpf Urine Mucus Few (FEW) /hpf - Radiology Interpretation Free Text/Narrative:: Flat and upright x-ray does not show any acute changes or air-fluid levels or evidence of obstruction. - Re-Assessments/Exams Free Text/Narrative Re-Assessment/Exam: 02/11/21 21:01 Spoke to the patient regarding her lab results and her x-rays. Urine is very dilute at 1.015 specific gravity but she does have 2+ leukocyte esterase and elevated white cells though there is only few bacteria. Being that the urine is so dilute I think it is significant that she does have white cells and bacteria and 2+ leukocyte esterase. We will culture her urine and also start her on some antibiotics for a urinary tract infection. 02/11/21 21:10 I spoke to the patient regarding the stool and the gas in the bowel but I think is causing the cramping. I will put her on some Zofran as well as some Bentyl for her abdominal cramps and I suggest that she be on a soft diet for the next few days to give the bowel some rest and may be started on some Colace to help with her bowel movements. I also encouraged her that if things get worse or she start running a fever then she needs to see her family doctor or return to the ER. Once we culture the urine if it grows anything specific we will call her and prescribe an antibiotic. Departure - Departure Time of Disposition: 21:11 Disposition: Home, Self-Care 01 Condition: Good Clinical Impression: Abdominal cramps Urinary tract infection Qualifiers: Urinary tract infection type: site unspecified Hematuria presence: without hematuria Qualified Code(s): N39.0 - Urinary tract infection, site not specified Constipation Qualifiers: Constipation type: unspecified constipation type Qualified Code(s): K59.00 - Constipation, unspecified - Discharge Information *PRESCRIPTION DRUG MONITORING PROGRAM REVIEWED*: Not Applicable *COPY OF PRESCRIPTION DRUG MONITORING REPORT IN PATIENT ABDIAS: Not Applicable Prescriptions: Dicyclomine [Bentyl] 10 mg PO TID PRN #15 cap PRN Reason: Abdominal Pain Ondansetron [Zofran] 4 mg PO Q6H PRN #12 tab PRN Reason: Nausea Instructions: Urinary Tract Infection, Adult, [id number], Abdominal Pain, Adult Referrals: Martin Agustin MD [Primary Care Provider] - Forms: ED Department Discharge Additional Instructions: You were seen in the ER for abdominal pain and a possible urinary tract infection, the urine suggest that you might have a urinary tract infection but we are going to culture the urine and if something grows out that is significant we will call you and prescribe you an antibiotic at that time since you have many antibiotics that you seem to be sensitive to, you also noted to have some stool and a bit of gas in your bowel that might be the cause of your abdominal cramps, I prescribe some Zofran for the nausea and Bentyl for the abdominal cramps take it as you need to. I would encourage you to stay on a soft diet and avoid salads for a few days in hopes that your bowels start moving and you will have better bowel movements, also consider eating some Colace just [id number] and taking it twice a day to help keep your stools soft, follow-up with your family doctor this coming week for recheck. Return to the ER if you have marked worsening of your symptoms or you start to run a fever. Sepsis Event Note (ED) - Evaluation Sepsis Screening Result: No Definite Risk - Focused Exam Vital Signs: Vital Signs Temp Pulse Resp BP Pulse Ox 02/11/21 19:12 97.6 F 69 16 144/78 H 99 - My Orders Last 24 Hours: My Active Orders 02/11/21 19:41 Abdomen 2V AP Flat Upright [CR] Stat 02/11/21 21:09 CULTURE URINE [RM] Stat - Assessment/Plan Last 24 Hours: My Active Orders 02/11/21 19:41 Abdomen 2V AP Flat Upright [CR] Stat 02/11/21 21:09 CULTURE URINE [RM] Stat
--- NOTE | 2021-02-12 10:33 | CR ---
Abdomen: Supine and upright views of the abdomen were obtained. Comparison: Prior abdominal x-ray of 10/19/20. Scattered bowel gas appears normal. Right hip prosthesis is seen. Vascular calcification is noted. Bony structures are osteopenic. Minimal degenerative change is seen within the spine. No free air is seen. Impression: 1. Findings as noted above. 2. Nothing acute is seen on 2 view abdominal x-ray. Diagnostic code #2
== END 2021-02-11 21:25 | disposition home or self-care (01) ==
LOC: JD.ED 18:50
DX: N39.0 Urinary tract infection, site not specified (principal); K59.00 Constipation, unspecified; I10 Essential (primary) hypertension; E03.9 Hypothyroidism, unspecified; Z87.891 Personal history of nicotine dependence; Z88.1 Allergy status to other antibiotic agents; Z88.5 Allergy status to narcotic agent; Z88.0 Allergy status to penicillin; Z79.899 Other long term (current) drug therapy
CPT/HCPCS: 36415; 74019; 74019-26; 80053; 81001; 85025; 86140; 87086; 99284

== ENCOUNTER 2022-01-08 18:23 | Emergency (ER) | payer MEDICARE, OTHER ==
[2022-01-08] MEDS ORDERED: Ondansetron 4 MG/2 ML SDV IVPUSH ONE (18:39)
[2022-01-08] MEDS ORDERED: Sodium Chloride 0.9% 1,000 ML IV SCH (18:45)
[2022-01-08] MEDS: Sodium Chloride 0.9% 10 ML Syringe FLUSH PRN ×2 (18:50→21:26)
[2022-01-08] MEDS ORDERED: Iopamidol 612 MG/ML 100 ML Bottle IVPUSH ONE (19:56)
[2022-01-08] MEDS ORDERED: Sodium Chloride 0.9% 10 ML Syringe FLUSH ONE (19:56)
[2022-01-08] MEDS ORDERED: Sodium Chloride 0.9% 100 ML IV SCH (20:00)
[2022-01-08 22:25] VITALS: BP 142/70; PULSE 87
== END 2022-01-08 22:46 | disposition home or self-care (01) ==
LOC: JD.ED 18:23
DX: R10.10 Upper abdominal pain, unspecified (principal); K21.9 Gastro-esophageal reflux disease without esophagitis; E03.9 Hypothyroidism, unspecified; Z88.0 Allergy status to penicillin; Z88.5 Allergy status to narcotic agent; Z88.1 Allergy status to other antibiotic agents; Z79.899 Other long term (current) drug therapy; Z87.891 Personal history of nicotine dependence
CPT/HCPCS: 36415; 74019; 74177; 80053; 81001; 83690; 84484; 85025; 85610; 85730; 86140; 93005; 96374; 99284; J2405; J7030; Q9967; 93010; 99285

== ENCOUNTER 2023-01-24 12:00 | Day surgery (SDC) | payer MEDICARE, OTHER ==
[~2023-01-24 12:00] MED LIST: Cefuroxime 10 MG/ML SYRINGE EYERT SCH
[2023-01-24] MEDS: Polymyxin B/Trimethoprim 10 ML Bottle EYERT SCH ×4 (13:34→15:14)
[2023-01-24] MEDS: Brimonidine 0.2% Ophth Soln 5 ML Bottle EYERT SCH ×4 (13:39→15:14)
[2023-01-24] MEDS: Phenylephrine 2.5% Ophth Soln 2 ML Bot EYERT SCH ×6 (13:49→15:11)
[2023-01-24] MEDS: Tropicamide 1% Ophth Soln 15 ML Bottle EYERT SCH ×4 (13:53→14:32)
[2023-01-24] MEDS: Tetracaine HCl/PF 0.5% 4 ML Bottle EYEBOTH SCH ×5 (14:39→15:11)
[2023-01-24] MEDS: Lidocaine 1% PF 2 ML SDV INJECT SCH ×2 (15:04→15:11)
[2023-01-24] MEDS: Pilocarpine 4% Ophth Soln 15 ML Bot EYERT SCH ×2 (15:12→15:14)
[2023-01-24 15:32] VITALS: BP 118/49; PULSE 77
== END 2023-01-24 15:26 | disposition home or self-care (01) ==
LOC: JD.SDS 12:00
PROVIDERS: ATTEND Ophthalmology
DX: H25.813 Combined forms of age-related cataract, bilateral (principal); H16.223 Keratoconjunctivitis sicca, not specified as Sjogren's, bilateral; H02.834 Dermatochalasis of left upper eyelid; H02.831 Dermatochalasis of right upper eyelid; I10 Essential (primary) hypertension; K21.9 Gastro-esophageal reflux disease without esophagitis; F41.9 Anxiety disorder, unspecified; E03.9 Hypothyroidism, unspecified; Z79.890 Hormone replacement therapy; Z79.899 Other long term (current) drug therapy; Z88.0 Allergy status to penicillin; Z88.5 Allergy status to narcotic agent; Z88.8 Allergy status to other drugs, medicaments and biological substances
CPT/HCPCS: 66984; A9270; J3490; V2788-GY

== ENCOUNTER 2023-02-21 11:12 | Day surgery (SDC) | payer MEDICARE, OTHER ==
[~2023-02-21 11:12] MED LIST changes: +Cefuroxime 10 MG/ML SYRINGE EYELF SCH; -Cefuroxime 10 MG/ML SYRINGE EYERT SCH; +Lidocaine 1% PF 2 ML SDV INJECT SCH; +Pilocarpine 4% Ophth Soln 15 ML Bot EYELF SCH
[2023-02-21] MEDS: Polymyxin B/Trimethoprim 10 ML Bottle EYELF SCH ×3 (11:33→12:50)
[2023-02-21] MEDS: Brimonidine 0.2% Ophth Soln 5 ML Bottle EYELF SCH ×3 (11:34→12:50)
[2023-02-21] MEDS: Phenylephrine 2.5% Ophth Soln 2 ML Bot EYELF SCH ×5 (11:34→12:31)
[2023-02-21] MEDS: Tropicamide 1% Ophth Soln 15 ML Bottle EYELF SCH ×4 (11:38→12:00)
[2023-02-21] MEDS: Tetracaine HCl/PF 0.5% 4 ML Bottle EYEBOTH SCH ×4 (12:00→12:39)
[2023-02-21 13:06] VITALS: BP 130/74; PULSE 79
== END 2023-02-21 13:00 | disposition home or self-care (01) ==
LOC: JD.SDS 11:12
PROVIDERS: ATTEND Ophthalmology
DX: H25.812 Combined forms of age-related cataract, left eye (principal); H40.053 Ocular hypertension, bilateral; H16.103 Unspecified superficial keratitis, bilateral; H02.834 Dermatochalasis of left upper eyelid; H02.831 Dermatochalasis of right upper eyelid; H16.223 Keratoconjunctivitis sicca, not specified as Sjogren's, bilateral; I10 Essential (primary) hypertension; E03.9 Hypothyroidism, unspecified; K21.9 Gastro-esophageal reflux disease without esophagitis; M54.2 Cervicalgia; G89.29 Other chronic pain; Z98.890 Other specified postprocedural states; Z79.899 Other long term (current) drug therapy; Z79.890 Hormone replacement therapy; Z88.0 Allergy status to penicillin; Z96.1 Presence of intraocular lens; Z88.5 Allergy status to narcotic agent; Z88.1 Allergy status to other antibiotic agents
CPT/HCPCS: 66984; A9270; J0697; J3490